=== PATIENT | male | born 1975 | race Caucasian/White ===

== ENCOUNTER 2016-07-20 12:33 | Inpatient (IN) ==
[~2016-07-20 12:33] MED LIST: *HR* LORazepam 2 MG/ML VIAL IVP ONE
[2016-07-20] MEDS ORDERED: Ipratropium/Albuterol Neb 3 ML IH ONE (12:44)
[2016-07-20] MEDS ORDERED: methylPREDNISolone 125 MG/2 ML VIAL IVP ONE (12:44)
--- NOTE | 2016-07-20 12:48 | Emergency Department Note ---
Disposition Clinical Impression: Asthma with status asthmaticus in adult Disposition: Admitted As Inpatient Condition: Serious SOB HPI - General Chief Complaint: ED Shortness of Breath/Dyspnea Stated Complaint: BHARAT-asthma Time Seen by Provider: 07/20/16 12:38 Nursing Notes Reviewed: Yes Vital Signs Reviewed: Yes - History of Present Illness Edward is a 41-year-old male with a history of asthma, anxiety, fibromyalgia who presents to the emergency department with a chief complaint of dysesthesia. He states since yesterday has noticed progressive difficulty breathing. He reports a recent respiratory infection and thinks it might have been pertussis but was treated by his PCP as an outpatient. He denies any chest pain or history of heart disease other than a fast heart rate. Denies any nausea or vomiting. Denies any history of DVT/PE. He is not bedbound or mobilized. Denies fevers or chills. No lightheadedness or syncope. No numbness or weakness in his extremities. - Related Data Home Medications Medication Instructions Recorded Confirmed Albuterol Neb [Proventil Neb] 2.5 mg IH Q4HR 07/20/16 07/20/16 Albuterol Sulfate [Proair Hfa] 2 puff IH Q4H PRN 07/20/16 07/20/16 Allopurinol [Zyloprim] 300 mg PO DAILY 07/20/16 07/20/16 Beclomethasone Diprop 80mcg [Qvar 1 puff IH BID 07/20/16 07/20/16 80 mcg] Benzonatate [Tessalon] 200 mg PO TID 07/20/16 07/20/16 Calcitriol 0.5 mcg PO DAILY 07/20/16 07/20/16 Cyclobenzaprine [Flexeril] 10 mg PO HS 07/20/16 07/20/16 Diazepam [Valium] 10 mg PO TID 07/20/16 07/20/16 Divalproex (24 HR) [Depakote ER 250 mg PO HS 07/20/16 07/20/16 (24 HR)] Gabapentin [Neurontin] 600 mg PO TID 07/20/16 07/20/16 Hydroxyzine HCl 25 mg PO TID 07/20/16 07/20/16 Meloxicam [Mobic] 15 mg PO DAILY 07/20/16 07/20/16 [place]-3/Dha/Epa/Fish Oil [Fish Oil 1,000 mg PO BID 07/20/16 07/20/16 1,000 mg Softgel] Oxycodone HCl/Acetaminophen 1 tab PO QID PRN 07/20/16 07/20/16 [Percocet 5-325 mg Tablet] Paroxetine [Paxil] 60 mg PO DAILY 07/20/16 07/20/16 Promethazine [Phenergan] 25 mg PO QID PRN 07/20/16 07/20/16 Propranolol LA (24 HR) [Inderal LA] 60 mg PO DAILY 07/20/16 07/20/16 Ranitidine HCl [Acid Staff Home Therapy Rn] 150 mg PO BID 07/20/16 07/20/16 SUMAtriptan Succinate [Imitrex] 100 mg PO DAILY PRN 07/20/16 07/20/16 Temazepam [Restoril] 30 mg PO HS 07/20/16 07/20/16 Allergies Allergy/AdvReac Type Severity Reaction Status Date / Time prochlorperazine Allergy Rash Verified 03/18/16 16:33 [From Compazine] onabotulinumtoxinA AdvReac Confusion Verified 07/20/16 15:34 [From Botox] All systems ED: reviewed and negative except as stated. Constitutional: Denies: fever Cardiovascular: Reports: dyspnea on exertion. Denies: chest pain Respiratory: Reports: cough, dyspnea Gastrointestinal: Denies: abdominal pain, nausea, vomiting Musculoskeletal: Denies: neck pain Integumentary: Denies: rash Neurological: Denies: headache, weakness, numbness Past Medical History - Past Medical History Medical history: Reports: arthritis, asthma, fibromyalgia, hyperlipidemia, hypertension, migraine Psychiatric history: Reports: no psych history - Social History Smoking Status: Never smoker Smokeless Tobacco Status: No Alcohol use: Reports: none Drug use: Reports: none Physical Exam General: Appears well, alert and oriented x 3 Cardiovascular: Tachycardic around 108 but regular rhythm. S1, S2. No murmurs , rubs or gallops. Respiratory: Patient's breathing about 35 times per minute. He is able to speak in several word sentences. Diminished breath sounds throughout with expiratory wheezing. Dry cough without productive sputum. Abdomen: Soft, nontender. No guarding, rebound or rigidity. Eyes: conjunctiva clear HENT: No oral mucosal lesions. Moist mucous membranes Neuro: Alert and oriented 3, amylase independently with a cane Musculoskeletal: There is no redness, swelling, edema, tenderness, asymmetry, pain along the venous system or any other sign of DVT. Skin: No lesions. No diaphoresis. Normal turgor. Normal color Psych: Appropriate Course Course Narrative: Presents to the emergency department with a chief complaint of dyspnea. Patient has a history of asthma and states over the last 48 hours his breathing has declined. When he initially came in he was talking in 5-6 word sentences, he ambulated and gave me his whole history of present illness. He was initially given 3 duo nebs [id number] as well as IV Solu-Medrol with little response. He began speaking in short sentences and he was placed on continuous albuterol nebs. He was given 2 g of magnesium. He continued to have decreased responsiveness to the point where his eyes were open but he was only slightly following commands. His chest x-ray showed nothing acute. An ABG did show a CO2 of 54. We called the triage licensed practical nurse, evaluate the patient emergency department and we were attempting to try all modalities before intubation. The patient was placed on BiPAP and was drawing tidal volumes between 450-550 with a rate between 20-24. I discussed this with the triage licensed practical nurse and at this time patient is protecting his airway and provided himself with good tidal volumes in rate and intubation may not be the most beneficial at this point in time. Plan is to admit him to the ICU on BiPAP and if he continues to deteriorate or has worsening ABGs decision to intubate can be made then. Vital Signs Temperature 98.2 F 07/20/16 12:40 Pulse Rate 124 07/20/16 12:40 Respiratory Rate 22 07/20/16 12:40 Blood Pressure 170/110 07/20/16 12:40 O2 Sat by Pulse Oximetry 97 07/20/16 12:40 Temperature 98.7 F 07/20/16 16:00 Pulse Rate 113 07/20/16 18:00 Respiratory Rate 15 07/20/16 18:00 Blood Pressure 136/98 07/20/16 18:00 O2 Sat by Pulse Oximetry 100 07/20/16 18:00 Oxygen Delivery Oxygen Delivery Bipap Shortness of Breath/Dyspnea - Lab Data Result diagrams: 07/20/16 14:03 07/20/16 14:03 Lab Results 07/20/16 07/20/16 07/20/16 Range/Units 14:03 14:03 14:20 WBC 9.1 (4.3-11.1) K/mcL RBC 5.55 H (4.19-5.50) M/mcL Hgb 17.1 H (12.9-16.9) g/dL Hct 49.9 (37.5-50.1) % MCV 89.9 (83.0-100.0) fL MCH 30.8 (28.0-33.3) pg MCHC 34.3 (31.6-35.5) g/dL RDW 12.9 (11.5-14.5) % Plt Count 226 (140-400) K/mcL MPV 9.3 L (9.4-12.4) fL Immature Gran % 0.9 (0-4) % Seg Neutrophils % 72.6 % Lymphocytes % 18.5 % Monocytes % 7.0 % Eosinophils % 0.7 % Basophils % 0.3 % Neutrophils # 6.6 (1.6-8.9) K/mcL Lymphocytes # 1.7 (0.6-4.6) K/mcL Monocytes # 0.6 (0.0-1.3) K/mcL Eosinophils # 0.1 (0.0-0.6) K/mcL Basophils # 0.0 (0.0-0.2) K/mcL ABG pH 7.32 (7.32-7.45) pH Units ABG pCO2 58 H (35-45) mmHg ABG pO2 53 L (85-104) mmHg ABG HCO3 29.9 H (21-27) mEQ/L ABG Total CO2 31.7 H (20-26) mEq/L ABG O2 Saturation 84 L (95-98) % ABG Base Excess 1.9 (-2.0 to 3.0) mEq/L Blood Gas Modality AEROSOL MASK Inspired O2 60 % Sodium 140 (136-145) mEq/L Potassium 3.9 (3.5-4.5) mEq/L Chloride 107 (98-109) mEq/L Carbon Dioxide 22 (19-29) mEq/L BUN 14 (8-26) mg/dL Creatinine 1.09 (0.72-1.25) mg/dL Est GFR ( Amer) > 60 (> 60) Est GFR (Non-Af Amer) > 60 (> 60) BUN/Creatinine Ratio 13 (6-26) Glucose 82 (70-99) mg/dL Calculated Osmolality 290 (280-300) Calcium 9.5 (8.6-10.8) mg/dL 07/20/16 Range/Units 14:45 WBC (4.3-11.1) K/mcL RBC (4.19-5.50) M/mcL Hgb (12.9-16.9) g/dL Hct (37.5-50.1) % MCV (83.0-100.0) fL MCH (28.0-33.3) pg MCHC (31.6-35.5) g/dL RDW (11.5-14.5) % Plt Count (140-400) K/mcL MPV (9.4-12.4) fL Immature Gran % (0-4) % Seg Neutrophils % % Lymphocytes % % Monocytes % % Eosinophils % % Basophils % % Neutrophils # (1.6-8.9) K/mcL Lymphocytes # (0.6-4.6) K/mcL Monocytes # (0.0-1.3) K/mcL Eosinophils # (0.0-0.6) K/mcL Basophils # (0.0-0.2) K/mcL ABG pH 7.32 (7.32-7.45) pH Units ABG pCO2 54 H (35-45) mmHg ABG pO2 249 H (85-104) mmHg ABG HCO3 27.8 H (21-27) mEQ/L ABG Total CO2 29.5 H (20-26) mEq/L ABG O2 Saturation 100 H (95-98) % ABG Base Excess 0.3 (-2.0 to 3.0) mEq/L Blood Gas Modality AEROSOL MASK Inspired O2 60 % Sodium (136-145) mEq/L Potassium (3.5-4.5) mEq/L Chloride (98-109) mEq/L Carbon Dioxide (19-29) mEq/L BUN (8-26) mg/dL Creatinine (0.72-1.25) mg/dL Est GFR ( Amer) (> 60) Est GFR (Non-Af Amer) (> 60) BUN/Creatinine Ratio (6-26) Glucose (70-99) mg/dL Calculated Osmolality (280-300) Calcium (8.6-10.8) mg/dL Critical Care Time Critical Care Time: Yes Total Critical Care Time: 35 Attestation: Critical care performed: Time is exclusive of separately billable procedures. Time includes: direct patient care, patient reassessment, coordination of patient care, interpretation of data (laboratory data, radiology data, and respiratory data), review of patient's medical records, medical consultation and documentation of patient care. Procedures included in critical care time: Procedures excluded from critical care time: Attestation Statement - Attestation Attestation: I, Carly Mays, examined this patient and my medical decision-making was reviewed with the SENIOR INFORMATION SECURITY ANALYST/PA/Advanced Practice Nurse/Resident Physician. I agree with the documented findings, disposition and treatment plan as described except to the extent set forth below. Patient presents to the emergency department with a chief complaint of difficulty in breathing. Onset yesterday. His significant other states he had an asthma attack yesterday morning and he had another one this morning. He has been admitted for his asthma once in the past. 2 weeks ago was diagnosed with pertussis but those symptoms improved. No fever. On exam the patient is tachycardic and tachypneic. Significantly diminished lungs sounds with end expiratory wheezing. Plan. Chest x-ray and nebs. We will reevaluate. Patient still felling better after neb treatments. We will check labs. We will try magnesium. Toradol and reevaluate. Called to him. Patient with increasing work of breathing. Altered mental status. Patient receiving continuous ambulatory treatment at this time. Discussed with pulmonology is at the bedside evaluating the patient.
[2016-07-20] MEDS ORDERED: Ketorolac 30 MG/ML VIAL IV ONE (13:46)
[2016-07-20] MEDS ORDERED: 0.9 % Sodium Chloride 1,000 ML IV ONE (13:46)
[2016-07-20] MEDS ORDERED: Albuterol 2.5 MG/3 ML NEBULIZER IH ONE (14:15)
[2016-07-20 14:18] LABS: Basophils % 0.3 %; Eosinophils # 0.1 K/mcL (0.0-0.6); Eosinophils % 0.7 %; Hematocrit 49.9 % (37.5-50.1); Hemoglobin 17.1 g/dL (12.9-16.9); Immature Granulocytes % 0.9 % (0-4); Lymphocytes # 1.7 K/mcL (0.6-4.6); Lymphocytes % 18.5 %; Mean Corpuscular HGB Conc 34.3 g/dL (31.6-35.5); Mean Corpuscular Hemoglobin 30.8 pg (28.0-33.3); Mean Corpuscular Volume 89.9 fL (83.0-100.0); Mean Platelet Volume 9.3 fL (9.4-12.4); Monocytes # 0.6 K/mcL (0.0-1.3); Neutrophils # 6.6 K/mcL (1.6-8.9); Platelet Count 226 K/mcL (140-400); Red Blood Count 5.55 M/mcL (4.19-5.50); Red Cell Distribution Width 12.9 % (11.5-14.5); Segmented Neutrophils % 72.6 %
[2016-07-20] MEDS ORDERED: Ketamine *HR* 500 MG/10 ML MDV IVP ONE (14:25)
[2016-07-20] MEDS ORDERED: Magnesium Sulfate 1 GM in D5% in Water 100 ML IVPB ONE (14:29)
[2016-07-20 14:31] LABS: BUN/Creatinine Ratio 13 (6-26); Blood Urea Nitrogen 14 mg/dL (8-26); Calcium 9.5 mg/dL (8.6-10.8); Carbon Dioxide 22 mEq/L (19-29); Chloride 107 mEq/L (98-109); Glucose 82 mg/dL (70-99); Osmolality,Calculated 290 (280-300); Potassium 3.9 mEq/L (3.5-4.5); Sodium 140 mEq/L (136-145); eGFR For African Americans > 60 (> 60); eGFR For Non-African Americans > 60 (> 60)
[2016-07-20] MEDS ORDERED: *HR* LORazepam 2 MG/ML VIAL IVP ONE (14:43)
[2016-07-20 15:00] LABS: ABG Base Excess 1.9 mEq/L (-2.0 to 3.0); ABG HCO3 29.9 mEQ/L (21-27); ABG Oxygen Saturation 84 % (95-98); ABG PCO2 58 mmHg (35-45); ABG PH 7.32 pH Units (7.32-7.45); ABG PO2 53 mmHg (85-104); ABG TCO2 31.7 mEq/L (20-26); Blood Gas FiO2 60 %
[2016-07-20 15:00] LABS: ABG Base Excess 0.3 mEq/L (-2.0 to 3.0); ABG HCO3 27.8 mEQ/L (21-27); ABG Oxygen Saturation 100 % (95-98); ABG PCO2 54 mmHg (35-45); ABG PH 7.32 pH Units (7.32-7.45); ABG PO2 249 mmHg (85-104); ABG TCO2 29.5 mEq/L (20-26)
[2016-07-20 15:01] LABS: Blood Gas FiO2 60 %
[2016-07-20] MEDS ORDERED: Ipratropium/Albuterol Neb 3 ML ONE (16:17)
[2016-07-20 16:37] LABS: ABG Base Excess 1.8 mEq/L (-2.0 to 3.0); ABG HCO3 27.8 mEQ/L (21-27); ABG Oxygen Saturation 97 % (95-98); ABG PCO2 47 mmHg (35-45); ABG PH 7.38 pH Units (7.32-7.45); ABG PO2 92 mmHg (85-104); ABG TCO2 29.2 mEq/L (20-26)
[2016-07-20 16:38] LABS: Blood Gas FiO2 40 %
[2016-07-20] MEDS ORDERED: Naloxone 0.4 MG/ML INJ IVP PRN (16:39)
--- NOTE | 2016-07-20 16:39 | Pulmonology History & Physical ---
Date of Encounter: 07/20/16 Time of Encounter: 16:38 Assessment and Plan (1) Acute weakness Current visit: Yes Status: Acute I spent 40min of Critical Care time with this patient. It involved decision making of high complexity to assess, manipulate, and support vital organ system failure and/or to prevent further life threatening deterioration of the patient' s condition. The time involved in the performance of separately reportable procedures was not counted toward critical care time. Neuropsych: 1. Acute weakness/decreased responsiveness. Paradoxically as respiratory status continues to improve neurologically he is had some deterioration. Noted in history of present illness patient is able to weakly move his hand bilaterally and legs bilaterally but only intermittently and to much prodding he has become very anxious appearing and tearful especially when speaking with his . Neurologically the only manifestation that I can think of that would result and this would be acute locked in syndrome. I am much more convinced that this represents a psychological conversion disorder. Nevertheless I will send patient for CT angiogram of head and neck when clinically stable from respiratory status to rule out this possibility. Acute noncontrasted head CT was within normal limits. He can also receive some low dose anxiolytic such as Ativan as needed to help with anxiety. Patient is unstable and unable to obtain MRI in at this time as he has had a lumbar implant. Pulm: 1. Acute hypoxic hypercapnic respiratory failure secondary to severe asthma exacerbation. Blood gas shows improving ventilation with noninvasive positive pressure support along with frequent bronchodilators which will continue every 12:40 hour as needed. We will continue IV steroids at this time. Patient is oxygenating well with very modest amounts of supplemental FiO2 right now 40% FiO2 being bled through her BiPAP will switch over to the heliox 70/30 ad mixture to help decrease airway resistance. Repeat ABG if worsening would pursue intubation. Cards: Tachycardia/hypertenson secondary to proper dilator administration along with anxiety and respiratory insufficiency. Continues to improve ECG without acute STEMI FEN-GI: Nothing by mouth for now IV crystalloid infusion as needed Renal: No SHANTHI Puga placed for strict monitoring of output while in respiratory distress on BiPAP urinalysis and urinary tox screen. ID: Recent history of pertussis status post treatment I am unclear exactly what treatment patient is undertaken at this time will but we will attempt to get records. No clear evidence of sepsis -does not have a white count and unclear what triggered asthma exacerbation but would cover with azithromycin overnight given recent pertussis diagnosis. Rule out influenza and will have brought respiratory infectious panel and sputum culture as able to gather. Checking lactate which may be elevated secondary to bronchodilator administration trend MAP (currently hypertensive). Continue to trend urine output Heme/Onc: DVT prophylaxis with SCDs pending CTA of Head. Endo: Glucose monitored Integ/MSK: Skin Care per ICU procotol to prevent ulcers CODE: Full. NOK/HKPOA Alexia updated and medical decision making outlined with her (2) Asthma with status asthmaticus in adult Current visit: Yes Status: Acute (3) Acute respiratory failure with hypoxia and hypercapnia Current visit: Yes Status: Acute History of Present Illness Chief complaint: Difficulty Breathing. HPI: Mr. Kerr is a 41 year old male with a history of asthma without prior episode of intubation. Presented to the ED with increased work of breathing and wheezing consistent with asthma exacerbation. Recently was diagnosed with pertussis approximately 2 weeks ago and per family he was treated unclear what he received for treatment. Over last 2 days it had increased shortness of breath but this morning he woke up is very dyspneic and upon arrival to the ED was speaking in very short sentences. Patient really required intubation but with aggressive bronchodilator administration IV magnesium and IV Solu-Medrol along with noninvasive positive pressure ventilation oxygenation ventilation improved and he was transferred to the ICU for further management Concerning only while in the ED patient became less responsive however respiratory status was actually improving. He was noted not to be moving his extremities and not following commands. Emergent head CT was performed without evidence of acute CVA. Upon arrival to the ED he was on BiPAP and although he was not following our commands was able to trigger the BiPAP. Oxygenation was 99% on very minimal FiO2. Repeat ABG showed improvement in ventilation. And certainly the amount of unresponsiveness was not consistent with improvement in respiratory status. Clinically patient was hemodynamically stable with palpable pulses blood pressure that was stable and was tachycardic but tachycardia vaccine improved from where it was when I evaluated the patient in the emergency department The patient was joined by his and [id number] at bedside I had a long conversation with them in and per the he does have some underlying depression and anxiety which is being treated she states that there was one prior episode in 2010 which we have in our [facility] records which demonstrated at that time he had acute arm weakness and slurred speech which he had extensive workup for possible CVA with including MRI which was negative at that time he was diagnosed with a conversion disorder which resolved after 3 weeks Both I and his were at bedside holding the patient's hand and encouraging him to respond to our commands patient became tearful he was able to after some time gently squeeze my hand when prompted on both hands and also to push against my hands very weakly with his feet Past Med Surg Social Fam HX - Past Medical History Medical history: arthritis, asthma, fibromyalgia, hyperlipidemia, hypertension, migraine Psychiatric history: no psych history - Social History Smoking Status: Never smoker Smokeless Tobacco Status: No Alcohol use: none Drug use: none Medications and Allergies Albuterol Neb [Proventil Neb] 2.5 mg IH Q4HR 07/20/16 [History] Albuterol Sulfate [Proair Hfa] 2 puff IH Q4H PRN 07/20/16 [History] Allopurinol [Zyloprim] 300 mg PO DAILY 07/20/16 [History] Beclomethasone Diprop 80mcg [Qvar 80 mcg] 1 puff IH BID 07/20/16 [History] Benzonatate [Tessalon] 200 mg PO TID 07/20/16 [History] Calcitriol 0.5 mcg PO DAILY 07/20/16 [History] Cyclobenzaprine [Flexeril] 10 mg PO HS 07/20/16 [History] Diazepam [Valium] 10 mg PO TID 07/20/16 [History] Divalproex (24 HR) [Depakote ER (24 HR)] 250 mg PO HS 07/20/16 [History] Gabapentin [Neurontin] 600 mg PO TID 07/20/16 [History] Hydroxyzine HCl 25 mg PO TID 07/20/16 [History] Meloxicam [Mobic] 15 mg PO DAILY 07/20/16 [History] [place]-3/Dha/Epa/Fish Oil [Fish Oil 1,000 mg Softgel] 1,000 mg PO BID 07/20/16 [ History] Oxycodone HCl/Acetaminophen [Percocet 5-325 mg Tablet] 1 tab PO QID PRN [History] Paroxetine [Paxil] 60 mg PO DAILY 07/20/16 [History] Promethazine [Phenergan] 25 mg PO QID PRN 07/20/16 [History] Propranolol LA (24 HR) [Inderal LA] 60 mg PO DAILY 07/20/16 [History] Ranitidine HCl [Acid [employer]] 150 mg PO BID 07/20/16 [History] SUMAtriptan Succinate [Imitrex] 100 mg PO DAILY PRN 07/20/16 [History] Temazepam [Restoril] 30 mg PO HS 07/20/16 [History] Allergies prochlorperazine [From Compazine] Allergy (Verified 03/18/16 16:33) Rash onabotulinumtoxinA [From Botox] Adverse Reaction (Verified 07/20/16 15:34) Confusion All Systems: A 10-system review of systems was performed and is negative for pertinent findings except as documented above in the HPI. Physical Examination Vital Signs: Vital Signs, Last 4 Hours Temp Pulse Resp BP Pulse Ox 07/20/16 16:20 21 158/92 07/20/16 16:00 98.7 F 120 24 159/100 98 General appearance: other (Patient is laying in bed occasionally he will make eye contact he does not move his extremities to command he is taking shallow breaths) Eyes: nonicteric ENT: oropharynx moist Neck: supple Effort: mildly labored Auscultation: bilateral: diminished breath sounds (Movement bilaterally although has improved since prior examination in ED), wheezes Cardiovascular: other (Rapid but regular with no murmur) Gastrointestinal: normoactive bowel sounds, soft, non-tender Integumentary: normal Extremities: no cyanosis, no edema, no clubbing, pink and warm, pulses normal Musculoskeletal: no deformities pupils equal and round, other (Patient does have modest response to deep painful stimuli although not nearly what would be expected. He is able to move both hands to my request after much prodding also he can wiggle his toes against my hand after much prodding. He has normal muscle tone with normal reflexes appreciated) anxious, tearful Results - Laboratory Findings CBC and BMP: 07/20/16 14:03 07/20/16 14:03 ABG ABG pH 7.32 pH Units (7.32-7.45) 07/20/16 14:45 ABG pCO2 54 mmHg (35-45) H 07/20/16 14:45 ABG pO2 249 mmHg (85-104) H 07/20/16 14:45 ABG O2 Saturation 100 % (95-98) H 07/20/16 14:45 Abnormal lab findings: Abnormal lab results RBC 5.55 M/mcL (4.19-5.50) H 07/20/16 14:03 Hgb 17.1 g/dL (12.9-16.9) H 07/20/16 14:03 MPV 9.3 fL (9.4-12.4) L 07/20/16 14:03 ABG pCO2 54 mmHg (35-45) H 07/20/16 14:45 ABG pO2 249 mmHg (85-104) H 07/20/16 14:45 ABG HCO3 27.8 mEQ/L (21-27) H 07/20/16 14:45 ABG Total CO2 29.5 mEq/L (20-26) H 07/20/16 14:45 ABG O2 Saturation 100 % (95-98) H 07/20/16 14:45 POC Glucose 102 (58-89) H 07/20/16 15:57 - Diagnostic Findings Chest x-ray: report reviewed, image reviewed
[2016-07-20] MEDS ORDERED: Albuterol 2.5 MG/3 ML NEBULIZER IH PRN (16:45)
[2016-07-20] MEDS: Ipratropium/Albuterol Neb 3 ML IH PRN ×7 (17:04→23:09)
[2016-07-20 17:06] LABS: Bilirubin,Urine Negative (Negative); Blood,Urine Negative (Negative); Clarity,Urine Clear (Clear); Color,Urine Yellow (Yellow); Glucose,Urine (UA) Normal (Normal); Ketones,Urine Negative (Negative); Leukocyte Esterase,Urine Negative (Negative); Nitrite,Urine Negative (Negative); Protein,Urine Negative (Neg-Trace); Specific Gravity,Urine 1.006 (1.010-1.025); Urobilinogen,Urine Normal (Normal)
[2016-07-20] MEDS: methylPREDNISolone 125 MG/2 ML VIAL IVP SCH ×2 (17:22→23:37)
[2016-07-20] MEDS: Azithromycin 500 MG in D5% in Water 250 ML IVPB SCH (17:22)
[2016-07-20 17:27] LABS: Amphetamine Screen,Urine Negative ng/mL (Cutoff=1000); Barbiturate Screen,Urine Negative ng/mL (Cutoff=200); Benzodiazepines Screen,Urine Positive ng/mL (Cutoff=200); Cannabinoid Screen,Urine Negative ng/mL (Cutoff = 50); Cocaine Screen,Urine Negative ng/mL (Cutoff= 300); Opiate Screen,Urine Negative ng/mL (Cutoff=300); Phencyclidine Screen,Urine Negative ng/mL (Cutoff=25)
[2016-07-20] MEDS ORDERED: Racepinephrine Neb 0.5 ML VIAL IH ONE ×3 (18:24→22:19)
[2016-07-20] MEDS: *HR* LORazepam 2 MG/ML VIAL IVP PRN (18:27)
[2016-07-20 19:26] LABS: ABG Base Excess 0.5 mEq/L (-2.0 to 3.0); ABG Oxygen Saturation 99 % (95-98); ABG PCO2 44 mmHg (35-45); ABG PH 7.38 pH Units (7.32-7.45); ABG PO2 155 mmHg (85-104); ABG TCO2 27.4 mEq/L (20-26); Blood Gas FiO2 40 %
[2016-07-20 19:45] LABS: Adenovirus Not Detected (Not Detect); Bordetella Pertussis Not Detected (Not Detect); Chlamydophila pneumoniae Not Detected (Not Detect); Coronavirus 229E Not Detected (Not Detect); Coronavirus HKU1 Not Detected (Not Detect); Coronavirus NL63 Not Detected (Not Detect); Coronavirus OC43 Not Detected (Not Detect); Human Metapneumovirus Not Detected (Not Detect); Human Rhinovirus/Enterovirus Not Detected (Not Detect); Influenza A Subtype 2009 H1 Not Detected (Not Detect); Influenza A Untypeable Not Detected (Not Detect); Influenza B Not Detected (Not Detect); Mycoplasma pneumoniae Not Detected (Not Detect); Parainfluenza Virus 1 Not Detected (Not Detect); Parainfluenza Virus 2 Not Detected (Not Detect); Parainfluenza Virus 3 Not Detected (Not Detect); Parainfluenza Virus 4 Not Detected (Not Detect); Respiratory Syncytial Virus Not Detected (Not Detect)
[2016-07-21 00:36] LABS: ABG Base Excess 1.4 mEq/L (-2.0 to 3.0); ABG HCO3 27.2 mEQ/L (21-27); ABG Oxygen Saturation 99 % (95-98); ABG PCO2 46 mmHg (35-45); ABG PH 7.38 pH Units (7.32-7.45); ABG PO2 117 mmHg (85-104); ABG TCO2 28.6 mEq/L (20-26); Blood Gas FiO2 40 %
[2016-07-21] MEDS: Ipratropium/Albuterol Neb 3 ML IH PRN ×6 (00:39→05:11)
[2016-07-21 04:01] LABS: Hemoglobin 17.3 g/dL (12.9-16.9); Mean Corpuscular HGB Conc 33.3 g/dL (31.6-35.5); Mean Corpuscular Hemoglobin 30.1 pg (28.0-33.3); Mean Corpuscular Volume 90.4 fL (83.0-100.0); Mean Platelet Volume 9.3 fL (9.4-12.4); Platelet Count 231 K/mcL (140-400); Red Blood Count 5.75 M/mcL (4.19-5.50); Red Cell Distribution Width 13.2 % (11.5-14.5)
[2016-07-21 04:18] LABS: BUN/Creatinine Ratio 16 (6-26); Blood Urea Nitrogen 17 mg/dL (8-26); Calcium 9.4 mg/dL (8.6-10.8); Carbon Dioxide 20 mEq/L (19-29); Chloride 107 mEq/L (98-109); Glucose 169 mg/dL (70-99); Magnesium 2.6 mg/dL (1.6-2.6); Osmolality,Calculated 295 (280-300); Potassium 4.5 mEq/L (3.5-4.5); Sodium 140 mEq/L (136-145); eGFR For African Americans > 60 (> 60); eGFR For Non-African Americans > 60 (> 60)
[2016-07-21 04:52] LABS: ABG Base Excess 1.4 mEq/L (-2.0 to 3.0); ABG HCO3 27.2 mEQ/L (21-27); ABG Oxygen Saturation 99 % (95-98); ABG PCO2 46 mmHg (35-45); ABG PH 7.38 pH Units (7.32-7.45); ABG PO2 128 mmHg (85-104); ABG TCO2 28.6 mEq/L (20-26)
[2016-07-21 04:56] LABS: Blood Gas FiO2 40 %
[2016-07-21] MEDS: methylPREDNISolone 125 MG/2 ML VIAL IVP SCH (05:03)
[2016-07-21] MEDS: *HR* LORazepam 2 MG/ML VIAL IVP PRN (08:03)
--- NOTE | 2016-07-21 10:50 | Neurology - Consult Note ---
Date of Encounter: 07/21/16 Time of Encounter: 10:47 Assessment and Plan (1) Acute weakness Current Visit: Yes Status: Acute Diffuse weakness, fluctuating and actually improving. Leg muscle strength at leat 4+/5 bilaterally. Patient is areflexic and does have previous coughing and URI symptoms without associated fever. Major concern is Guillain-[place] but since weakness rapidly improving and no other sensory deficits, at this time would recommend continuing medical and supportive care. Does have history of chronic pain and fibromyalgia which can contribute to diffuse muscle pain and give away weakness. History of Present Illness Chief complaint: diffuse muscle weakness HPI: Mr. Kerr is a 41 year old male with PMH significant for fibromyalgia, , Chronic pain, history of arsenic poisenning, asthma, migriane headaches, who developed acute respiratory failure being treated in the ICU. Neurology was consulted due to being found to have fluctuating diffuse weakness. Per medical staff, patient was found this AM to have quite significant muscle weakness and that he could life his arms up. It it noticed that the muscle weakness comes and goes. Patient says that he has fibromyalgia and when he moves he is in pain. He also says that he has history of arsenic poisening contributing to leg weakness. At the time of this interview, he is able to lift leg up off the bed bilaterally. No difficulty speaking or swallowing. Patient says that few days ago he developed persistent cough few weeks ago and had a course of amoxicillin via PCP. No fever reported. Says that otherwise he felt fine before developing asthma on Last Thursday. Past Med Surg Social Fam HX - Past Medical History Medical history: arthritis, asthma, fibromyalgia, hyperlipidemia, hypertension, migraine Psychiatric history: no psych history - Social History Smoking Status: Never smoker Smokeless Tobacco Status: No Alcohol use: none Drug use: none Medications and Allergies Albuterol Neb [Proventil Neb] 2.5 mg IH Q4HR 07/20/16 [History] Albuterol Sulfate [Proair Hfa] 2 puff IH Q4H PRN 07/20/16 [History] Allopurinol [Zyloprim] 300 mg PO DAILY 07/20/16 [History] Beclomethasone Diprop 80mcg [Qvar 80 mcg] 1 puff IH BID 07/20/16 [History] Benzonatate [Tessalon] 200 mg PO TID 07/20/16 [History] Calcitriol 0.5 mcg PO DAILY 07/20/16 [History] Cyclobenzaprine [Flexeril] 10 mg PO HS 07/20/16 [History] Diazepam [Valium] 10 mg PO TID 07/20/16 [History] Divalproex (24 HR) [Depakote ER (24 HR)] 250 mg PO HS 07/20/16 [History] Gabapentin [Neurontin] 600 mg PO TID 07/20/16 [History] Hydroxyzine HCl 25 mg PO TID 07/20/16 [History] Meloxicam [Mobic] 15 mg PO DAILY 07/20/16 [History] [place]-3/Dha/Epa/Fish Oil [Fish Oil 1,000 mg Softgel] 1,000 mg PO BID 07/20/16 [ History] Oxycodone HCl/Acetaminophen [Percocet 5-325 mg Tablet] 1 tab PO QID PRN [History] Paroxetine [Paxil] 60 mg PO DAILY 07/20/16 [History] Promethazine [Phenergan] 25 mg PO QID PRN 07/20/16 [History] Propranolol LA (24 HR) [Inderal LA] 60 mg PO DAILY 07/20/16 [History] Ranitidine HCl [Acid Chemical Treatment Operator] 150 mg PO BID 07/20/16 [History] SUMAtriptan Succinate [Imitrex] 100 mg PO DAILY PRN 07/20/16 [History] Temazepam [Restoril] 30 mg PO HS 07/20/16 [History] Allergies prochlorperazine [From Compazine] Allergy (Verified 03/18/16 16:33) Rash onabotulinumtoxinA [From Botox] Adverse Reaction (Verified 07/20/16 15:34) Confusion All Systems: A 10-system review of systems was performed and is negative for pertinent findings except as documented above in the HPI. 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 Motor examination - left side: 4: hip flexors, 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 operator, quadriceps, tibialis Anterior, toe extension (EHL), plantarflexion, 5/5: deltoids, biceps, triceps, wrist flexion, wrist extension Detailed sensory examination: intact Posture: other (None) Reflex and gait examination: intact Reflexes: Biceps: 0, Triceps: 0, Brachioradialis: 0, Patella: 0, Achilles: 0 Mental Status Examination: awake, alert, oriented to person, oriented to place, oriented to time, follows commands appropriately, answers questions appropriately, no agnosia, no aphasia, no aproxia Cranial nerve examination: PERRL, EOMI, visual sheriff intact, corneal reflexes brisk symmetrically, sensory to face intact, mastication intact, no facial asymmetry is present, no dysarthria, hearing is intact symmetrically, soft palate elevates bilaterally upon phonation, gag reflex intact, flexes SCM and trapezius muscles symmetrically with full power, tongue protrudes midline, no atrophy or facial fasiculations present Results - Laboratory Findings CBC and BMP: 07/21/16 03:50 07/21/16 03:50 Abnormal lab findings: Abnormal lab results WBC 13.1 K/mcL (4.3-11.1) H 07/21/16 03:50 RBC 5.75 M/mcL (4.19-5.50) H 07/21/16 03:50 Hgb 17.3 g/dL (12.9-16.9) H 07/21/16 03:50 Hct 52.0 % (37.5-50.1) H 07/21/16 03:50 MPV 9.3 fL (9.4-12.4) L 07/21/16 03:50 ABG pCO2 46 mmHg (35-45) H 07/21/16 04:38 ABG pO2 128 mmHg (85-104) H 07/21/16 04:38 ABG HCO3 27.2 mEQ/L (21-27) H 07/21/16 04:38 ABG Total CO2 28.6 mEq/L (20-26) H 07/21/16 04:38 ABG O2 Saturation 99 % (95-98) H 07/21/16 04:38 Glucose 169 mg/dL (70-99) H 07/21/16 03:50 POC Glucose 102 (58-89) H 07/20/16 15:57 Lactic Acid 3.6 mmol/L (0.5-2.2) H 07/21/16 05:34 Ur Specific [place] 1.006 (1.010-1.025) L 07/20/16 16:50 U Benzodiazepines Scrn Positive ng/mL (Gcglfo=112) H 07/20/16 16:50 Consult Discharge Plan - Plan Referrals: Nathaniel Russell MD [Primary Care Provider] -
[2016-07-21] MEDS ORDERED: SUMAtriptan succinate 50 MG TABLET PO PRN (11:55)
[2016-07-21] MEDS ORDERED: Acetaminophen 325 MG TABLET PO ONE (12:08)
[2016-07-21] MEDS: Benzonatate 100 MG CAPSULE PO SCH ×3 (12:42→20:09)
[2016-07-21 12:54] LABS: Albumin 4.5 g/dL (3.5-5.0); Albumin/Globulin Ratio 1.3 (1.1-2.2); Bilirubin,Direct 0.2 mg/dL (0.0-0.5); Bilirubin,Indirect 0.5 mg/dL (0.0-1.2); Globulin 3.5 g/dL (2.4-3.5)
[2016-07-21 13:12] LABS: Bilirubin,Total 0.7 mg/dL (0.2-1.2)
--- NOTE | 2016-07-21 13:13 | Electrocardiograph Report ---
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
--- NOTE | 2016-07-21 13:21 | Electrocardiograph Report ---
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 NO FURTHER INTERPRETATION POSSIBLE Electronically Signed On 07-21-16 13:20:28 EST by Antonio Reynolds MD
--- NOTE | 2016-07-21 13:49 | Pulmonology Progress Note ---
Date of Encounter: 07/21/16 Time of Encounter: 09:30 Assessment and Plan (1) Acute respiratory failure with hypoxia and hypercapnia Current Visit: Yes Status: Acute Acute hypoxic hypercapnic respiratory failure s/t severe asthma exacerbation Recent history of pertussis status post treatment, unclear of what treatment pt underwent for this. Lactate 3.6 which may be elevated secondary to bronchodilator administration Continue to trend urine output Continue bronchodilators and IV steroids Pt oxygenating well on 3L NC (2) Asthma with status asthmaticus in adult Current Visit: Yes Status: Acute Continue with bronchodilators and IV steroids at this time Supplemental oxygenation, O2: 96% on 3L (3) Acute weakness Current Visit: Yes Status: Acute Pt reportedly walked into ED and then developed weakness of BLE and BUE on admission He has been able to move all extremities intermittently and symptoms seem to be improving at this time CT head and CTA head/neck demonstrated no abnormalities History of chronic pain and fibromyalgia which may be contributing to pain/ weakness Neurology was consulted Subjective Principal diagnosis: Asthma exacerbation Interval history: Pt became anxious this morning with the BiPAP in place. Pt removed this and he was subsequently placed on NC. Pt was able to move all extremities this morning. Objective PUL Vital signs: Last Vital Signs Temp 97.7 F 07/21/16 11:51 Pulse 103 07/21/16 12:25 Resp 16 07/21/16 12:00 BP 135/84 07/21/16 12:00 Pulse Ox 96 07/21/16 12:00 General appearance: alert, lethargic Eyes: nonicteric Neck: supple Effort: mildly labored Auscultation: bilateral: diminished breath sounds Cardiovascular: other (Regular rhythm, tachycardic) Gastrointestinal: normoactive bowel sounds, soft, non-distended Integumentary: normal Extremities: no cyanosis, no edema, no clubbing Musculoskeletal: no deformities pupils equal and round, other (Pt is able to follow commands and move each extremity although he reports pain with movement. ) anxious Results - Laboratory Findings CBC and BMP: 07/21/16 03:50 07/21/16 03:50 ABG ABG pH 7.38 pH Units (7.32-7.45) 07/21/16 04:38 ABG pCO2 46 mmHg (35-45) H 07/21/16 04:38 ABG pO2 128 mmHg (85-104) H 07/21/16 04:38 ABG O2 Saturation 99 % (95-98) H 07/21/16 04:38 Abnormal lab findings: Abnormal lab results WBC 13.1 K/mcL (4.3-11.1) H 07/21/16 03:50 RBC 5.75 M/mcL (4.19-5.50) H 07/21/16 03:50 Hgb 17.3 g/dL (12.9-16.9) H 07/21/16 03:50 Hct 52.0 % (37.5-50.1) H 07/21/16 03:50 MPV 9.3 fL (9.4-12.4) L 07/21/16 03:50 ABG pCO2 46 mmHg (35-45) H 07/21/16 04:38 ABG pO2 128 mmHg (85-104) H 07/21/16 04:38 ABG HCO3 27.2 mEQ/L (21-27) H 07/21/16 04:38 ABG Total CO2 28.6 mEq/L (20-26) H 07/21/16 04:38 ABG O2 Saturation 99 % (95-98) H 07/21/16 04:38 Glucose 169 mg/dL (70-99) H 07/21/16 03:50 POC Glucose 102 (58-89) H 07/20/16 15:57 Lactic Acid 3.6 mmol/L (0.5-2.2) H 07/21/16 05:34 Ur Specific [place] 1.006 (1.010-1.025) L 07/20/16 16:50 U Benzodiazepines Scrn Positive ng/mL (Ixszjy=379) H 07/20/16 16:50 - Clinical Findings Intake & Output: Intake & Output 07/20/16 07/21/16 07/21/16 23:59 07:59 15:59 Intake Total 250 / 250 0 / 0 Output Total 1680 / 1680 200 / 200 100 / 100 Balance -1430 / -1430 -200 / -200 -100 / -100 Weight 92.675 kg 93.894 kg - VTE Documentation of Mechanical Device: Intermittent pneumatic compression device Consult Discharge Plan - Plan Referrals: Nathaniel Russell MD [Primary Care Provider] -
[2016-07-21] MEDS: Propranolol LA (24 HR) 60 MG CAP.SA.24H PO SCH (14:49)
[2016-07-21] MEDS: Albuterol 2.5 MG/3 ML NEBULIZER IH SCH ×2 (15:56→20:49)
[2016-07-21] MEDS: Azithromycin 500 MG in D5% in Water 250 ML IVPB SCH (16:23)
[2016-07-21] MEDS: *HR* Heparin 5,000 UNIT/ML VIAL SQ SCH ×2 (16:23→23:32)
[2016-07-21] MEDS: hydrOXYzine pamoate 25 MG CAPSULE PO SCH ×2 (16:23→20:10)
[2016-07-21] MEDS: Gabapentin 300 MG CAPSULE PO SCH ×2 (16:23→20:09)
[2016-07-21] MEDS: MethylPREDNISolone 40 MG/ML VIAL IVP SCH (16:24)
[2016-07-21] MEDS: Famotidine 20 MG TABLET PO SCH (20:10)
[2016-07-21] MEDS ORDERED: Temazepam 15 MG CAPSULE PO SCH (21:00)
[2016-07-21] MEDS ORDERED: Divalproex (24 HR) 250 MG TABLET PO SCH (21:00)
[2016-07-22] MEDS: Albuterol 2.5 MG/3 ML NEBULIZER IH SCH ×7 (00:26→23:34)
[2016-07-22 03:20] LABS: Basophils % 0.1 %; Hematocrit 46.6 % (37.5-50.1); Immature Granulocytes % 0.6 % (0-4); Immature Platelets 2.2 % (1.1-6.1); Lymphocytes # 1.4 K/mcL (0.6-4.6); Lymphocytes % 7.7 %; Mean Corpuscular HGB Conc 34.3 g/dL (31.6-35.5); Mean Corpuscular Hemoglobin 31.3 pg (28.0-33.3); Mean Corpuscular Volume 91.2 fL (83.0-100.0); Mean Platelet Volume 9.2 fL (9.4-12.4); Monocytes # 1.5 K/mcL (0.0-1.3); Monocytes % 7.9 %; Neutrophils # 15.7 K/mcL (1.6-8.9); Platelet Count 258 K/mcL (140-400); Red Blood Count 5.11 M/mcL (4.19-5.50); Red Cell Distribution Width 13.2 % (11.5-14.5); Segmented Neutrophils % 83.7 %
[2016-07-22 03:33] LABS: BUN/Creatinine Ratio 22 (6-26); Calcium 9.2 mg/dL (8.6-10.8); Carbon Dioxide 23 mEq/L (19-29); Chloride 107 mEq/L (98-109); Glucose 129 mg/dL (70-99); Osmolality,Calculated 292 (280-300); Potassium 4.5 mEq/L (3.5-4.5); Sodium 138 mEq/L (136-145); eGFR For African Americans > 60 (> 60); eGFR For Non-African Americans > 60 (> 60)
[2016-07-22 03:37] LABS: Blood Urea Nitrogen 25 mg/dL (8-26)
[2016-07-22] MEDS: MethylPREDNISolone 40 MG/ML VIAL IVP SCH (04:46)
[2016-07-22] MEDS: Pantoprazole 40 MG VIAL IVP SCH ×2 (05:56→06:00)
--- NOTE | 2016-07-22 08:12 | Pulmonology Progress Note ---
Date of Encounter: 07/22/16 Time of Encounter: 07:45 Assessment and Plan (1) Acute respiratory failure with hypoxia and hypercapnia Current Visit: Yes Status: Acute Acute hypoxic hypercapnic respiratory failure s/t severe asthma exacerbation Recent history of pertussis status post treatment, states he was given amoxicillin prior to diagnosis, then azithromycin. Lactate 1.9 today (decreased from 3.6) Continue to trend urine output Continue bronchodilators and IV steroids O2 sat 97% on 2L (2) Asthma with status asthmaticus in adult Current Visit: Yes Status: Acute Continue with bronchodilators and IV steroids at this time Supplemental oxygenation, O2: 97% on 2L (3) Acute weakness Current Visit: Yes Status: Acute Pt reportedly walked into ED and then developed weakness of BLE and BUE on admission He is able to move all extremities without difficulty on exam this morning CT head and CTA head/neck demonstrated no abnormalities History of chronic pain and fibromyalgia which may be contributing to pain/ weakness Neurology was consulted (4) DVT prophylaxis Current Visit: Yes Status: Acute Heparin SQ Subjective Principal diagnosis: Asthma exacerbation Interval history: Pt feeling well this morning, resting comfortably in bed. States that all symptoms have improved. Able to move all extremities without difficulty. Denies shortness of breath, chest pain, nausea, vomiting, diarrhea, or constipation. Objective PUL Vital signs: Last Vital Signs Temp 98.2 F 07/22/16 07:33 Pulse 90 07/22/16 07:39 Resp 10 07/22/16 07:57 BP 129/90 07/22/16 06:01 Pulse Ox 95 07/22/16 07:57 General appearance: no acute distress Eyes: nonicteric ENT: oropharynx moist Neck: supple Effort: normal Auscultation: bilateral: clear Cardiovascular: regular rate and rhythm Gastrointestinal: normoactive bowel sounds, soft, non-tender, non-distended Integumentary: normal Extremities: no cyanosis, no edema, no clubbing Musculoskeletal: no deformities normal mental status, non-focal exam, pupils equal and round, motor strength normal and symmetric mood appropriate Results - Laboratory Findings CBC and BMP: 07/22/16 03:08 07/22/16 03:08 ABG ABG pH 7.38 pH Units (7.32-7.45) 07/21/16 04:38 ABG pCO2 46 mmHg (35-45) H 07/21/16 04:38 ABG pO2 128 mmHg (85-104) H 07/21/16 04:38 ABG O2 Saturation 99 % (95-98) H 07/21/16 04:38 Abnormal lab findings: Abnormal lab results WBC 18.8 K/mcL (4.3-11.1) H 07/22/16 03:08 MPV 9.2 fL (9.4-12.4) L 07/22/16 03:08 Neutrophils # 15.7 K/mcL (1.6-8.9) H 07/22/16 03:08 Monocytes # 1.5 K/mcL (0.0-1.3) H 07/22/16 03:08 ABG pCO2 46 mmHg (35-45) H 07/21/16 04:38 ABG pO2 128 mmHg (85-104) H 07/21/16 04:38 ABG HCO3 27.2 mEQ/L (21-27) H 07/21/16 04:38 ABG Total CO2 28.6 mEq/L (20-26) H 07/21/16 04:38 ABG O2 Saturation 99 % (95-98) H 07/21/16 04:38 Glucose 129 mg/dL (70-99) H 07/22/16 03:08 POC Glucose 102 (58-89) H 07/20/16 15:57 Ur Specific [place] 1.006 (1.010-1.025) L 07/20/16 16:50 U Benzodiazepines Scrn Positive ng/mL (Sgxtvi=439) H 07/20/16 16:50 - Clinical Findings Intake & Output: Intake & Output 07/21/16 07/22/16 07/22/16 23:59 07:59 15:59 Intake Total 1050 / 1050 0 / 0 Output Total 900 / 900 0 / 0 Balance 150 / 150 0 / 0 Weight 93.5 kg - VTE Documentation of Mechanical Device: Intermittent pneumatic compression device Consult Discharge Plan - Plan Referrals: Nathaniel Russell MD [Primary Care Provider] -
[2016-07-22] MEDS: Gabapentin 300 MG CAPSULE PO SCH ×3 (09:26→20:29)
[2016-07-22] MEDS: *HR* Heparin 5,000 UNIT/ML VIAL SQ SCH (09:26)
[2016-07-22] MEDS: Propranolol LA (24 HR) 60 MG CAP.SA.24H PO SCH (09:26)
[2016-07-22] MEDS: Benzonatate 100 MG CAPSULE PO SCH (09:27)
[2016-07-22] MEDS: hydrOXYzine pamoate 25 MG CAPSULE PO SCH ×3 (09:27→20:30)
[2016-07-22] MEDS: Famotidine 20 MG TABLET PO SCH (09:27)
[2016-07-22] MEDS ORDERED: Benzonatate 100 MG CAPSULE PO PRN ×2 (11:24→11:42)
[2016-07-22] MEDS ORDERED: *HR* LORazepam 2 MG/ML VIAL IVP PRN (11:42)
[2016-07-22] MEDS ORDERED: SUMAtriptan succinate 50 MG TABLET PO PRN (11:42)
[2016-07-22] MEDS ORDERED: Naloxone 0.4 MG/ML INJ IVP PRN (11:42)
[2016-07-22] MEDS ORDERED: Ipratropium/Albuterol Neb 3 ML IH PRN (11:42)
[2016-07-22] MEDS ORDERED: *HR* Heparin 5,000 UNIT/ML VIAL SQ SCH (16:00)
[2016-07-22] MEDS ORDERED: Azithromycin 500 MG in D5% in Water 250 ML IVPB SCH (17:00)
[2016-07-22] MEDS ORDERED: MethylPREDNISolone 40 MG/ML VIAL IVP SCH (18:00)
--- NOTE | 2016-07-22 18:08 | Neurology Progress Note ---
Date of Encounter: 07/22/16 Time of Encounter: 11:00 Assessment and Plan (1) Acute weakness Current Visit: Yes Status: Acute Resolved. Likely related to ongoing medical insult. Resolved as medical conditions improve. Will sign off at this time Please continue medical and supportive care. Please call if any questions. Subjective Principal diagnosis: Asthma exacerbation and weakness Interval history: Patient seen and examined. Doing well today and is able to walk to the bathroon without any difficulty. Leg/arm weakness resolved. 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, hip flexors, tibialis Anterior, quadriceps, toe extension (EHL), plantarflexion Motor examination - left side: 5/5: deltoids, biceps, triceps, wrist flexion, wrist extension, hip flexors, reinforcing steel worker wire mesh, quadriceps, tibialis Anterior, toe extension (EHL), plantarflexion Sensation intact: Present: intact Posture: Present: other (None) Reflex and gait examination: intact Reflexes: Biceps: 0, Triceps: 0, Brachioradialis: 0, Patella: 0, Achilles: 0 Mental Status Examination: Present: awake, alert, oriented to person, oriented to place, oriented to time, follows commands appropriately, answers questions appropriately, no agnosia, no aphasia, no aproxia Cranial nerve examination: Present: PERRL, EOMI, visual sheriff intact, corneal reflexes brisk symmetrically, sensory to face intact, mastication intact, no facial asymmetry is present, no dysarthria, hearing is intact symmetrically, soft palate elevates bilaterally upon phonation, gag reflex intact, flexes SCM and trapezius muscles symmetrically with full power, tongue protrudes midline, no atrophy or facial fasiculations present - VTE Documentation of Mechanical Device: Intermittent pneumatic compression device Results - Laboratory Findings CBC and BMP: 07/22/16 03:08 07/22/16 03:08 Abnormal lab findings: Abnormal lab results WBC 18.8 K/mcL (4.3-11.1) H 07/22/16 03:08 MPV 9.2 fL (9.4-12.4) L 07/22/16 03:08 Neutrophils # 15.7 K/mcL (1.6-8.9) H 07/22/16 03:08 Monocytes # 1.5 K/mcL (0.0-1.3) H 07/22/16 03:08 ABG pCO2 46 mmHg (35-45) H 07/21/16 04:38 ABG pO2 128 mmHg (85-104) H 07/21/16 04:38 ABG HCO3 27.2 mEQ/L (21-27) H 07/21/16 04:38 ABG Total CO2 28.6 mEq/L (20-26) H 07/21/16 04:38 ABG O2 Saturation 99 % (95-98) H 07/21/16 04:38 Glucose 129 mg/dL (70-99) H 07/22/16 03:08 POC Glucose 102 (58-89) H 07/20/16 15:57 Ur Specific [place] 1.006 (1.010-1.025) L 07/20/16 16:50 U Benzodiazepines Scrn Positive ng/mL (Rxnxeq=038) H 07/20/16 16:50 Consult Discharge Plan - Plan Referrals: Nathaniel Russell MD [Primary Care Provider] -
[2016-07-22] MEDS ORDERED: Divalproex (24 HR) 250 MG TABLET PO SCH (21:00)
[2016-07-22] MEDS ORDERED: Temazepam 15 MG CAPSULE PO SCH (21:00)
[2016-07-23] MEDS ORDERED: Acetaminophen IV 1,000 MG/100 ML INFUS..BTL IVPB ONE (02:02)
[2016-07-23] MEDS ORDERED: Ketorolac 30 MG/ML VIAL IVP ONE (02:02)
[2016-07-23] MEDS: Albuterol 2.5 MG/3 ML NEBULIZER IH SCH ×3 (03:50→11:38)
[2016-07-23] MEDS ORDERED: Pantoprazole 40 MG VIAL IVP SCH (06:30)
[2016-07-23] MEDS ORDERED: *HR* Heparin 5,000 UNIT/ML VIAL SQ SCH (07:00)
[2016-07-23] MEDS: hydrOXYzine pamoate 25 MG CAPSULE PO SCH (08:14)
[2016-07-23] MEDS: Gabapentin 300 MG CAPSULE PO SCH (08:14)
[2016-07-23 08:34] LABS: Basophils % 0.1 %; Hematocrit 44.8 % (37.5-50.1); Hemoglobin 15.4 g/dL (12.9-16.9); Immature Granulocytes % 0.5 % (0-4); Lymphocytes % 7.3 %; Mean Corpuscular HGB Conc 34.4 g/dL (31.6-35.5); Mean Corpuscular Volume 90.1 fL (83.0-100.0); Mean Platelet Volume 9.6 fL (9.4-12.4); Monocytes # 0.9 K/mcL (0.0-1.3); Neutrophils # 11.4 K/mcL (1.6-8.9); Platelet Count 222 K/mcL (140-400); Red Blood Count 4.97 M/mcL (4.19-5.50); Red Cell Distribution Width 13.1 % (11.5-14.5); Segmented Neutrophils % 85.1 %
[2016-07-23 08:48] LABS: BUN/Creatinine Ratio 27 (6-26); Blood Urea Nitrogen 23 mg/dL (8-26); Carbon Dioxide 22 mEq/L (19-29); Chloride 107 mEq/L (98-109); Glucose 125 mg/dL (70-99); Osmolality,Calculated 293 (280-300); Potassium 4.2 mEq/L (3.5-4.5); Sodium 139 mEq/L (136-145); eGFR For African Americans > 60 (> 60); eGFR For Non-African Americans > 60 (> 60)
[2016-07-23] MEDS ORDERED: Propranolol LA (24 HR) 60 MG CAP.SA.24H PO SCH (09:00)
[2016-07-23] MEDS ORDERED: Famotidine 20 MG TABLET PO SCH (09:00)
[2016-07-23] MEDS ORDERED: predniSONE 20 MG TABLET PO SCH ×2 (09:00)
[2016-07-23] MEDS ORDERED: Beclomethasone 80mcg MDI IH SCH (09:15)
[2016-07-23 10:26] VITALS: BP 116/71
--- NOTE | 2016-07-23 13:34 | Electrocardiograph Report ---
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
--- NOTE | 2016-07-23 13:46 | Discharge Summary ---
Date of Encounter: 07/23/16 Time of Encounter: 13:00 - Discharge Diagnosis (1) Acute respiratory failure with hypoxia and hypercapnia Priority: Primary Status: Acute (2) Acute weakness Priority: Primary Status: Acute (3) Asthma with status asthmaticus in adult Priority: Primary Status: Acute (4) DVT prophylaxis Priority: Secondary Status: Acute - Discharge Medications Prescriptions: Azithromycin [Zithromax] 500 mg PO Q24H #10 tablet PredniSONE 40 mg PO DAILY #30 tablet Home Medications: Albuterol Neb [Proventil Neb] 2.5 mg IH Q4HR 07/20/16 [History] Albuterol Sulfate [Proair Hfa] 2 puff IH Q4H PRN 07/20/16 [History] Allopurinol [Zyloprim] 300 mg PO DAILY 07/20/16 [History] Beclomethasone Diprop 80mcg [QVAR 80 mcg] 1 puff IH BID 07/20/16 [History] Benzonatate [Tessalon] 200 mg PO TID 07/20/16 [History] Calcitriol 0.5 mcg PO DAILY 07/20/16 [History] Cyclobenzaprine [Flexeril] 10 mg PO HS 07/20/16 [History] Diazepam [Valium] 10 mg PO TID 07/20/16 [History] Divalproex (24 HR) [Depakote ER (24 HR)] 250 mg PO HS 07/20/16 [History] Gabapentin [Neurontin] 600 mg PO TID 07/20/16 [History] Hydroxyzine HCl 25 mg PO TID 07/20/16 [History] Meloxicam [Mobic] 15 mg PO DAILY 07/20/16 [History] [place]-3/Dha/Epa/Fish Oil [Fish Oil 1,000 mg Softgel] 1,000 mg PO BID 07/20/16 [ History] Oxycodone HCl/Acetaminophen [Percocet 5-325 mg Tablet] 1 tab PO QID PRN [History] Paroxetine [Paxil] 60 mg PO DAILY 07/20/16 [History] Promethazine [Phenergan] 25 mg PO QID PRN 07/20/16 [History] Ranitidine HCl [Acid Supervisor Meter Shop] 150 mg PO BID 07/20/16 [History] SUMAtriptan Succinate [Imitrex] 100 mg PO DAILY PRN 07/20/16 [History] Temazepam [Restoril] 30 mg PO HS 07/20/16 [History] Azithromycin [Zithromax] 500 mg PO Q24H #10 tablet 07/23/16 [Rx] PredniSONE 40 mg PO DAILY #30 tablet 07/23/16 [Rx] Allergies/Adverse Reactions: Allergies prochlorperazine [From Compazine] Allergy (Verified 03/18/16 16:33) Rash onabotulinumtoxinA [From Botox] Adverse Reaction (Verified 07/20/16 15:34) Confusion Procedures/tests Complete & Pending: Procedures Performed prior 72 hours Category Date Time Status CT angio head [CT] Stat Cat Scan 07/20/16 16:[address] angio neck [CT] Stat Cat Scan 07/20/16 16:57 Completed ECG 12 lead ECG [ECG] Routine Y 07/20/16 18:45 Completed ECG 12 lead ECG [ECG] Routine Y 07/23/16 02:10 Completed - Notes to Outpatient Provider Patient is on propranolol, possibly for his anxiety and essential tremor. Propranolol is discontinued because patient has severe asthma this time. Please consider other medication if patient continues to have anxiety and essential tremor. Date of admission: 07/20/16 15:21 Primary care physician: Nathaniel Russell MD Consults: 07/21/16 09:50 Consult to Neurology [CONS] Routine Consulting Provider: Josselyn Sanchez Reason for Consult: Extremity weakness Call Completed: Yes 07/22/16 11:21 Consult to Occupational Therapy [CONS] Routine Comment: Evaluate, develop and implement POC Consult to Physical Therapy [CONS] Routine Comment: Evaluate, develop and implement POC 07/23/16 11:59 Consult to Lift Truck Operator [CONS] Stat Reason for SW Consult: home health set up for discharge Discharging clinician: Elías Bee Anticipated date of discharge: 07/23/16 - Patient Status Disposition: Home, Self-Care Condition: Good Functional capacity at discharge: independent ambulation Overall status at discharge: patient is progressing back to baseline - Discharge Instructions Follow Up With: Nathaniel Russell MD [Primary Care Provider] - 07/28/16 10:00 am - Diet and Activity Activity: as per physical therapy, increase activity as tolerated Diet: regular diet Interval History: Mr. Kerr is a 41 year old male with a history of asthma without prior episode of intubation. Presented to the ED with increased work of breathing and wheezing consistent with asthma exacerbation. Recently was diagnosed with pertussis approximately 2 weeks ago and per family he was treated unclear what he received for treatment. Over last 2 days it had increased shortness of breath but this morning he woke up is very dyspneic and upon arrival to the ED was speaking in very short sentences. Patient really required intubation but with aggressive bronchodilator administration IV magnesium and IV Solu-Medrol along with noninvasive positive pressure ventilation oxygenation ventilation improved and he was transferred to the ICU for further management Concerning only while in the ED patient became less responsive however respiratory status was actually improving. He was noted not to be moving his extremities and not following commands. Emergent head CT was performed without evidence of acute CVA. Upon arrival to the ED he was on BiPAP and although he was not following our commands was able to trigger the BiPAP. Oxygenation was 99% on very minimal FiO2. Repeat ABG showed improvement in ventilation. And certainly the amount of unresponsiveness was not consistent with improvement in respiratory status. Clinically patient was hemodynamically stable with palpable pulses blood pressure that was stable and was tachycardic but tachycardia vaccine improved from where it was when I evaluated the patient in the emergency department Hospital course: Mr. Kerr is a 41 year old male admitted for severe asthma attack, status asthmaticus. He was admitted to ICU and was given antibiotic, steroid, and bronchodilator. After treatment, his condition is getting better. He is not in any acute respiratory distress any more. Patient was transferred to floor yesterday. Patient's condition is stable in floor, no fever, no shortness of breath, no chest pain, no nausea or vomiting. Vital signs stable. We will discharge home today. Patient had a weakness and evaluated by PT OT, he is recommended for home PT OT but he refused. He would like to have outpatient PT and OT therapy, arrangement has been set up. I saw and examined the patient today. He is awake, alert, oriented 3. Talk to me in full sentences, in no acute respiratory distress, lungs are clear, no wheezing. SPO2 95% in room air. Patient walk around in room without assistance. Patient will be discharged home with by mouth antibiotic and tapering down steroid. - Time Spent with Patient Total time spent providing and/or coordinating discharge services: - Constitutional Vitals: Temp Pulse Resp BP Pulse Ox 97.8 F 86 16 116/71 95 07/23/16 10:23 07/23/16 10:23 07/23/16 11:38 07/23/16 10:23 07/23/16 11:38 General appearance: Present: A&O X 3, no acute distress, answers questions appropriately - Head Head exam: Present: atraumatic, normocephalic - Eye Eye exam: Present: PERRL, conjuntiva pink, sclera anicteric Pupils: Present: PERRL - Neck Neck exam general surgery: Present: supple, trachea midline. Absent: lymphadenopathy - Respiratory Respiratory exam: Present: CTAB. Absent: accessory muscle use, rales, rhonchi, wheezes - Cardiovascular Cardiovascular exam: Present: RRR, +S1, +S2. Absent: diastolic murmur, gallop, rubs, systolic murmur - GI/Abdominal GI/Abdominal exam: Present: normal bowel sounds, soft, no peritoneal signs. Absent: distended, tenderness - Extremities Exam Extremities exam: Present: warm, radial pulses palpable and symetrical. Absent : calf tenderness, cyanotic, pedal edema - Neurological Exam Neurological exam: Present: CN II-XII intact, oriented X3, no focal deficits. Absent: pronater drift, facial droop, speech deficit - Skin Skin exam: Present: dry, intact - VTE Documentation of Mechanical Device: Intermittent pneumatic compression device
== END 2016-07-23 15:25 | disposition home or self-care (01) | DRG 189 ==
LOC: EMEROO 12:33 → ICNU 15:21 → 3ANU 07-22 14:59
PROVIDERS: ADMIT Internal Medicine Hospice and Palliative Medicine; ATTEND Internal Medicine

== ENCOUNTER 2017-02-02 08:45 | Inpatient (IN) ==
[2017-02-02] MEDS ORDERED: *HR* HYDROmorphone (PF) 1 MG/ML SYRINGE IVP ONE ×2 (09:19→13:19)
[2017-02-02] MEDS ORDERED: Ondansetron 4 MG/2 ML VIAL IVP ONE (09:19)
--- NOTE | 2017-02-02 09:25 | Emergency Department Note ---
START Narrative - START START: I examined this patient and my medical decision-making was reviewed with the Resident Physician. I agree with the documented findings, disposition and treatment plan as described except to the extent set forth below. Patient in emergency department with abdominal pain. Onset last night. He has a fever. No appetite. On examination he is laying about on his back. He is on his abdomen. Diaphoretic and right-sided tenderness diffusely. Plan. Labs and CT. Symptom control. Patient still having significant pain. CT is unremarkable. he is admitted to medicine.
--- NOTE | 2017-02-02 09:26 | Emergency Department Note ---
Disposition Clinical Impression: Abdominal pain Qualifiers: Abdominal location: unspecified location Qualified Code(s): R10.9 - Unspecified abdominal pain Disposition: Admitted As Inpatient Condition: Good Referrals: Nathaniel Russell MD [Primary Care Provider] - Time of Disposition: 17:07 General Adult HPI - General Chief complaint: ED Abdominal Pain Stated complaint: RLQ pain/fever Time Seen by Provider: 02/02/17 08:59 Source: patient Limitations: no limitations Nursing Notes Reviewed: Yes Vital Signs Reviewed: Yes - History of Present Illness HPI Narrative: Right lower quadrant abdominal pain is started at 11:30 last night. He states it is sharp and achy in nature. It does not radiate. He does have associated fevers and nausea associated with this. There are no provoking or alleviating factors. Pain Scale: 7 - Related Data Home Medications Medication Instructions Recorded Confirmed Albuterol Neb [Proventil Neb] 2.5 mg IH Q4HR PRN 07/20/16 11/04/16 Albuterol Sulfate [Proair Hfa] 2 puff IH Q4H PRN 07/20/16 11/04/16 Allopurinol [Zyloprim] 300 mg PO DAILY 07/20/16 11/04/16 Beclomethasone Diprop 80mcg [QVAR 1 puff IH BID 07/20/16 11/04/16 80 mcg] Calcitriol 0.5 mcg PO DAILY 07/20/16 11/04/16 Cyclobenzaprine [Flexeril] 10 mg PO HS 07/20/16 11/04/16 Divalproex (24 HR) [Depakote ER 250 mg PO HS 07/20/16 11/04/16 (24 HR)] Meloxicam [Mobic] 15 mg PO DAILY 07/20/16 11/04/16 [place]-3/Dha/Epa/Fish Oil [Fish Oil 1,000 mg PO BID 07/20/16 11/04/16 1,000 mg Softgel] Promethazine [Phenergan] 25 mg PO QID PRN 07/20/16 11/04/16 Ranitidine HCl [Acid Automotive Alignment Specialist] 150 mg PO BID 07/20/16 11/04/16 SUMAtriptan Succinate [Imitrex] 100 mg PO DAILY PRN 07/20/16 11/04/16 Temazepam [Restoril] 30 mg PO HS 07/20/16 11/04/16 hydrOXYzine HCl [Hydroxyzine HCl] 25 mg PO TID 07/20/16 11/04/16 Baclofen [Lioresal] 10 mg PO TID 11/04/16 11/04/16 Cetirizine HCl [All Day Allergy] 10 mg PO DAILY 11/04/16 11/04/16 EPINEPHrine [Epipen] 0.3 mg IJ ONCE PRN 11/04/16 11/04/16 Pantoprazole Sodium [Protonix] 40 mg PO HS 11/04/16 11/04/16 Paroxetine [Paxil] 20 mg PO DAILY 11/04/16 11/04/16 Pregabalin [Lyrica] 150 mg PO BID 11/04/16 11/04/16 Propranolol LA (24 HR) [Inderal LA] 60 mg PO DAILY 11/04/16 11/04/16 Allergies Allergy/AdvReac Type Severity Reaction Status Date / Time prochlorperazine Allergy Rash Verified 11/04/16 12:43 [From Compazine] onabotulinumtoxinA AdvReac Confusion Verified 11/04/16 12:43 [From Botox] All systems ED: reviewed and negative except as stated. Constitutional: Reports: fever (High temp of 101.). Denies: chills Cardiovascular: Denies: chest pain, dyspnea on exertion, syncope Respiratory: Denies: cough, dyspnea, wheezes Gastrointestinal: Reports: abdominal pain (Right lower quadrant), nausea. Denies: vomiting, diarrhea Genitourinary: Denies: urgency, dysuria, frequency, hematuria, discharge Musculoskeletal: Reports: back pain (Chronic low back). Denies: neck pain Integumentary: Denies: rash, abrasion Neurological: Denies: headache, weakness, numbness Psychiatric: Denies: anxiety Past Medical History - Past Medical History Medical history: Reports: arthritis, asthma, fibromyalgia, hyperlipidemia, hypertension, migraine Psychiatric history: Reports: anxiety, depression - Social History Smoking Status: Never smoker Smokeless Tobacco Status: No Alcohol use: Reports: none Drug use: Reports: none Physical Exam - General Limitations: no limitations General appearance: alert, in distress (Appears to be in pain.) - Head Head exam: atraumatic, normocephalic, normal inspection - Eye Eye exam: Present: normal appearance, PERRL, EOMI. Absent: scleral icterus - ENT ENT exam: normal exam, normal oropharynx, mucous membranes moist - Neck Neck exam: Present: normal inspection, full ROM, trachea midline. Absent: tenderness, meningismus - Chest Chest inspection: Present: normal inspection, symmetric chest wall rise. Absent : tenderness - Respiratory Respiratory exam: Present: normal lung sounds bilaterally. Absent: respiratory distress - Cardiovascular Cardiovascular exam: Present: regular rate, normal rhythm, normal heart sounds - Abdominal Exam Abdominal exam: Present: soft, tenderness (To right lower quadrant. Also complains of pain that radiates to his right lower quadrant whenever he palpate his right upper quadrant.), normal bowel sounds. Absent: distention, guarding, rebound, rigidity, organomegaly - Extremities Exam Extremities exam: Present: normal inspection, full ROM, normal capillary refill. Absent: tenderness, pedal edema - Back Exam Back exam: Present: normal inspection, full ROM, CVA tenderness (R). Absent: tenderness, CVA tenderness (L) - Neurological Exam Neurological exam: Present: alert, oriented X3 - Psychiatric Psychiatric exam: Present: normal affect, normal mood - Skin Skin exam: Present: warm, intact, normal color, diaphoresis. Absent: rash, cyanosis Course Course Narrative: No patient complaining of right lower quadrant pain. He states this began last night around 11:30. He states that he has had a fever since then up to 101. He is not tried anything to make his pain nausea or fever better. He is nauseated. He denies any shortness of breath or chest pain. He does report lower quadrant pain. On exam his lung sounds are clear heart tones are normal. He does have pain on palpation of his right lower quadrant. He also has pain on palpation of his right upper quadrant. He states that this radiates down into his right lower quadrant. He has right-sided CVA tenderness. He does have a history of uric acid crystals in his urine. States he has never had a stone. Patient states he has had no episodes of vomiting. Patient is diaphoretic on exam. He is holding his right lower quadrant. He does have a trash can at bedside states that he is worried about vomiting. We will get a CT of his abdomen. We will Provide with pain and nausea relief. - Reevaluation(s) Reevaluation #1: Patient states that his pain has decreased somewhat however he still in a decent amount pain. He appears to be in pain. He is still diaphoretic. He is still holding his abdomen. CT of abdomen did not show appendicitis. His white count is normal. UA is still pending. We will continue to monitor patient. Time: 11:34 Reevaluation #2: Patient reassessed. He is still in significant pain. He is still diaphoretic. Complaining of right lower quadrant pain. We have discussed admission with the patient. He is agreeable to this. We will admit patient for serial abdominal exams. I discussed this with Dr Lee. He is agreeable with the plan. Time: 13:19 Vital Signs Temperature 100 F H 02/02/17 08:52 Pulse Rate 104 02/02/17 08:52 Respiratory Rate 16 02/02/17 08:52 Blood Pressure 131/81 02/02/17 08:52 O2 Sat by Pulse Oximetry 98 02/02/17 08:52 Temperature 98.3 F 02/02/17 15:42 Pulse Rate 78 02/02/17 15:42 Respiratory Rate 15 02/02/17 15:42 Blood Pressure 117/74 02/02/17 15:42 O2 Sat by Pulse Oximetry 97 02/02/17 15:42 Oxygen Delivery Oxygen Delivery Room Air Medical Decision Making - Medical Records Medical records reviewed: Yes I reviewed the patient's medical records. - Lab Data Lab results reviewed: Yes I reviewed the patient's lab results. Result diagrams: 02/02/17 09:58 02/02/17 09:58 Lab Results 02/02/17 02/02/17 02/02/17 Range/Units 09:58 09:58 11:25 WBC 10.3 (4.3-11.1) K/mcL RBC 5.43 (4.19-5.50) M/mcL Hgb 16.3 (12.9-16.9) g/dL Hct 46.7 (37.5-50.1) % MCV 86.0 (83.0-100.0) fL MCH 30.0 (28.0-33.3) pg MCHC 34.9 (31.6-35.5) g/dL RDW 13.2 (11.5-14.5) % Plt Count 188 (140-400) K/mcL MPV 10.0 (9.4-12.4) fL Immature Gran % 0.3 (0-4) % Seg Neutrophils % 70.6 % Lymphocytes % 14.1 % Monocytes % 13.2 % Eosinophils % 1.5 % Basophils % 0.3 % Neutrophils # 7.3 (1.6-8.9) K/mcL Lymphocytes # 1.5 (0.6-4.6) K/mcL Monocytes # 1.4 H (0.0-1.3) K/mcL Eosinophils # 0.2 (0.0-0.6) K/mcL Basophils # 0.0 (0.0-0.2) K/mcL Sodium 138 (136-145) mEq/L Potassium 3.8 (3.5-4.5) mEq/L Chloride 104 (98-109) mEq/L Carbon Dioxide 24 (19-29) mEq/L BUN 15 (8-26) mg/dL Creatinine 1.25 (0.72-1.25) mg/dL Est GFR ( Amer) > 60 (> 60) Est GFR (Non-Af Amer) > 60 (> 60) BUN/Creatinine Ratio 12 (6-26) Glucose 97 (70-99) mg/dL Calculated Osmolality 287 (280-300) Calcium 9.7 (8.6-10.8) mg/dL Total Bilirubin 1.0 (0.2-1.2) mg/dL Direct Bilirubin 0.3 (0.0-0.5) mg/dL Indirect Bilirubin 0.7 (0.0-1.2) mg/dL AST 24 (5-34) Units/L ALT 51 (0-55) Units/L Alkaline Phosphatase 87 (38-126) Units/L Serum Total Protein 7.6 (6.0-8.3) g/dL Albumin 4.1 (3.5-5.0) g/dL Globulin 3.5 (2.4-3.5) g/dL Albumin/Globulin Ratio 1.2 (1.1-2.2) Lipase 24 (8-78) Units/L Urine Color Yellow (Yellow) Urine Clarity Clear (Clear) Urine pH 6.5 (5.0-8.0) pH Units Ur Specific [place] 1.018 (1.010-1.025) Urine Protein Negative (Neg-Trace) mg/dL Urine Glucose (UA) Normal (Normal) mg/dL Urine Ketones Negative (Negative) mg/dL Urine Blood Negative (Negative) Urine Nitrite Negative (Negative) Urine Bilirubin Negative (Negative) Urine Urobilinogen Normal (Normal) mg/dL Ur Leukocyte Esterase Negative (Negative) Ur Culture Indicated? NO (NO) - Radiology Data Radiology results reviewed: Yes I reviewed the patient's radiology results. Abdomen/Pelvis CT 02/02/17 09:20 IMPRESSION: 1. No evidence of bowel obstruction, intraperitoneal free air, or abscess. 2. Findings consistent with presence of changes of fatty infiltration of the liver as described. D/ / 02/02/2017 10:50:13 Demetrio Palm MD / [facility] Interpreting Provider: Demetrio Palm MD - EKG Data EKG #1 EKG results narrative: Normal sinus rhythm at a rate of 94. MI interval is 175. QRS duration is 106. QT is 352. QTC is 404. No signs of acute ischemia. No significant change from previous EKG dated 07/23/2016.
[2017-02-02 10:05] LABS: Basophils % 0.3 %; Eosinophils # 0.2 K/mcL (0.0-0.6); Eosinophils % 1.5 %; Hematocrit 46.7 % (37.5-50.1); Hemoglobin 16.3 g/dL (12.9-16.9); Immature Granulocytes % 0.3 % (0-4); Lymphocytes # 1.5 K/mcL (0.6-4.6); Lymphocytes % 14.1 %; Mean Corpuscular HGB Conc 34.9 g/dL (31.6-35.5); Monocytes # 1.4 K/mcL (0.0-1.3); Monocytes % 13.2 %; Neutrophils # 7.3 K/mcL (1.6-8.9); Platelet Count 188 K/mcL (140-400); Red Blood Count 5.43 M/mcL (4.19-5.50); Red Cell Distribution Width 13.2 % (11.5-14.5); Segmented Neutrophils % 70.6 %
[2017-02-02 10:18] LABS: Alanine Aminotransferase 51 Units/L (0-55); Albumin 4.1 g/dL (3.5-5.0); Albumin/Globulin Ratio 1.2 (1.1-2.2); Alkaline Phosphatase 87 Units/L (38-126); Aspartate Amino Transferase 24 Units/L (5-34); BUN/Creatinine Ratio 12 (6-26); Bilirubin,Direct 0.3 mg/dL (0.0-0.5); Bilirubin,Indirect 0.7 mg/dL (0.0-1.2); Blood Urea Nitrogen 15 mg/dL (8-26); Calcium 9.7 mg/dL (8.6-10.8); Carbon Dioxide 24 mEq/L (19-29); Chloride 104 mEq/L (98-109); Globulin 3.5 g/dL (2.4-3.5); Glucose 97 mg/dL (70-99); Lipase 24 Units/L (8-78); Osmolality,Calculated 287 (280-300); Potassium 3.8 mEq/L (3.5-4.5); Sodium 138 mEq/L (136-145); Total Protein 7.6 g/dL (6.0-8.3); eGFR For African Americans > 60 (> 60); eGFR For Non-African Americans > 60 (> 60)
[2017-02-02] MEDS ORDERED: Ketorolac 15 MG/ML VIAL IVP ONE (11:33)
[2017-02-02 11:38] LABS: Bilirubin,Urine Negative (Negative); Blood,Urine Negative (Negative); Clarity,Urine Clear (Clear); Color,Urine Yellow (Yellow); Glucose,Urine (UA) Normal (Normal); Ketones,Urine Negative (Negative); Leukocyte Esterase,Urine Negative (Negative); Nitrite,Urine Negative (Negative); PH,Urine 6.5 pH Units (5.0-8.0); Protein,Urine Negative (Neg-Trace); Specific Gravity,Urine 1.018 (1.010-1.025); Urobilinogen,Urine Normal (Normal)
[2017-02-02] MEDS ORDERED: Naloxone 0.4 MG/ML INJ IVP PRN (14:54)
[2017-02-02] MEDS ORDERED: Acetaminophen 325 MG TABLET PO PRN ×2 (14:54→23:07)
[2017-02-02] MEDS ORDERED: SUMAtriptan succinate 50 MG TABLET PO PRN (14:57)
--- NOTE | 2017-02-02 15:06 | Internal Med History&Physical ---
<Elisha Harding M - Last Filed: 02/02/17 18:13> Date of Encounter: 02/02/17 Time of Encounter: 15:03 Assessment and Plan (1) Kidney stone on right side Current visit: Yes Status: Acute CT of the abdomen showed a non-obstructing punctate calculus in pole of right kidney. Likely source of patient's pain. No hydronephrosis. UA negative for infection. Pain control and nausea control. IV fluids. (2) Abdominal pain Current visit: Yes Status: Acute Patient reporting sudden onset of right sided abdominal pain and nausea last evening at 11:30, accompanied by fever, chills and sweats. CT Abd/Pelvis shows no evidence of bowel obstruction, intraperitoneal free air or abscess. Non-obstructing punctate calculus in lower pole of right kidney. stone may be source of pain. [place] and dilaudid PRN for pain colace BID Narcan PRN for respiratory depression. NPO except for meds and ice chips. Advance diet as tolerated. Qualifiers: Abdominal location: unspecified location Qualified Code(s): R10.9 - Unspecified abdominal pain (3) Fever Current visit: Yes Status: Acute Patient reporting fever, chills and sweats with temperature of 101 at home. Temperature of 100F on presentation. Patient also complaining of right sided abdominal pain. No cough, SOB. Reports some increased right sided abdominal pain with urination. CT shows small non-obstructing stone in pole of right kidney. UA negative for infection blood cultures ordered check VS Q4hr. Qualifiers: Fever type: unspecified Qualified Code(s): R50.9 - Fever, unspecified (4) Hypertension Current visit: Yes Status: Acute Continue home dose of propranalol. Qualifiers: Hypertension type: essential hypertension Qualified Code(s): I10 - Essential (primary) hypertension (5) Nausea Current visit: Yes Status: Acute Patient reporting nausea with abdominal pain since last evening. Patient reports he has gastroparesis and he takes PO phenergan at home. Zofran IVP PRN. NPO except meds and ice chips advance as tolerated. (6) DVT prophylaxis Current visit: Yes Status: Acute anti-embolic stockings lovenox 40mg SQ daily Internal Medicine - H&P: HPI Chief complaint: abdominal pain Admitted From: Emergency Dept Plans for Post Hospital Care: Home History of present illness: Mr. Kerr is a 42 year old male with asthma, hypertension, hyperlipidemia, migraine headaches, gout, fibromyalgia presented to the emergency department today with complaints of right-sided abdominal pain. Patient reports that approximately 11:30 last night he developed sudden onset of sharp pain in his right side of his abdomen, he reports he reports it radiates from his right upper quadrant down his right lower quadrant. He also reports some nausea, but has not vomited. He reports occasional dizziness. Denies chest pain, palpitations, or shortness of breath. He reports he has been having regular bowel movements. He reports he has had some pain in his right side while trying to urinate. He also reports fevers, sweats and chills since last night as well. Evaluation in the emergency department reveals normal right blood cell count of 10.3. Abdominal and pelvis CT showed no evidence of bowel obstruction, intraperitoneal free air or abscess. EKG showed normal sinus rhythm and ischemia no changes from previous. Urinalysis was not concerning for infection. Patient was mildly tachycardic with heart rate in the 90s to low 100s, and his temperature was 100.0 Fahrenheit. Blood cultures were drawn, and retroperitoneal ultrasound was ordered. On exam, patient alert and oriented , in no acute distress. He is mildly diaphoretic. Heart has regular rate and rhythm, lungs are clear bilaterally to auscultation. Abdomen is tender to left upper quadrant, right upper quadrant, right lower quadrant. He has positive bowel sounds. Past Med Surg Social Fam HX - Past Medical History Medical history: arthritis, asthma, fibromyalgia, hyperlipidemia, hypertension, migraine Psychiatric history: anxiety, depression - Past Surgical History Surgical History: other (bladder stimulator) - Social History Smoking Status: Never smoker Smokeless Tobacco Status: No Alcohol use: none Drug use: none - Family History Mother Living Status: Still Living Hx Family Medical Disorders: Yes (fibromyalia, arthritis, seizures) Father Living Status: Still Living Hx Family Respiratory Disorders: Yes (copd) Hx Family Endocrine Disorder: Yes (DM) Internal Medicine - H&P: Meds Albuterol Neb [Proventil Neb] 2.5 mg IH Q4HR PRN 07/20/16 [History] Albuterol Sulfate [Proair Hfa] 2 puff IH Q4H PRN 07/20/16 [History] Allopurinol [Zyloprim] 300 mg PO DAILY 07/20/16 [History] Beclomethasone Diprop 80mcg [QVAR 80 mcg] 1 puff IH BID 07/20/16 [History] Calcitriol 0.5 mcg PO DAILY 07/20/16 [History] Cyclobenzaprine [Flexeril] 10 mg PO HS 07/20/16 [History] Divalproex (24 HR) [Depakote ER (24 HR)] 250 mg PO HS 07/20/16 [History] Meloxicam [Mobic] 15 mg PO DAILY 07/20/16 [History] Fields-3/Dha/Epa/Fish Oil [Fish Oil 1,000 mg Softgel] 1,000 mg PO BID 07/20/16 [ History] Promethazine [Phenergan] 25 mg PO QID PRN 07/20/16 [History] Ranitidine HCl [Acid Butter Maker] 150 mg PO BID 07/20/16 [History] SUMAtriptan Succinate [Imitrex] 100 mg PO DAILY PRN 07/20/16 [History] Temazepam [Restoril] 30 mg PO HS 07/20/16 [History] hydrOXYzine HCl [Hydroxyzine HCl] 25 mg PO TID 07/20/16 [History] Baclofen [Lioresal] 10 mg PO TID 11/04/16 [History] Cetirizine HCl [All Day Allergy] 10 mg PO DAILY 11/04/16 [History] EPINEPHrine [Epipen] 0.3 mg IJ ONCE PRN 11/04/16 [History] Pantoprazole Sodium [Protonix] 40 mg PO HS 11/04/16 [History] Paroxetine [Paxil] 20 mg PO DAILY 11/04/16 [History] Pregabalin [Lyrica] 150 mg PO BID 11/04/16 [History] Propranolol LA (24 HR) [Inderal LA] 60 mg PO DAILY 11/04/16 [History] Allergies prochlorperazine [From Compazine] Allergy (Verified 11/04/16 12:43) Rash onabotulinumtoxinA [From Botox] Adverse Reaction (Verified 11/04/16 12:43) Confusion All Systems PM: A 10-system review of systems was performed and is negative for pertinent findings except as documented above in the HPI. - Constitutional Constitutional: chills, fever(s), night sweats - EENT Eyes: no change in vision, no discharge, no pain, no photophobia Ears: no ear discharge, no ear pain, no tinnitus Nose, mouth and throat: no dysphagia, no nasal discharge, no neck pain, no sore throat - Cardiovascular Cardiovascular ROS IM: no chest pain, no diaphoresis, no dyspnea, no lightheadedness, no palpitations, no syncope - Respiratory Respiratory: no cough, no dyspnea, no wheezing, no excessive phlegm production - Gastrointestinal Gastrointestinal: abdominal pain, nausea, no diarrhea, no hematemesis, no hematochezia, no melena, no vomiting - Genitourinary Genitourinary ROS male: dysuria, flank pain - Musculoskeletal Musculoskeletal ROS IM: no numbness, no tingling - Integumentary Integumentary IM: no rash, no unusual bruising - Neurological Neurological ROS: no confusion, no convulsions, no focal weakness, no numbness, no tingling, no tremor(s) - Hematologic/Lymphatic Hematologic/Lymphatic: no easy bruising - Constitutional Vitals: Temp Pulse Resp BP Pulse Ox 100 F H 98 18 118/82 98 02/02/17 08:52 02/02/17 11:23 02/02/17 14:43 02/02/17 14:43 02/02/17 11:23 General appearance: Present: A&O X 3, pleasant, no acute distress - Head Head exam: Present: atraumatic, normocephalic - Eye Eye exam: Present: PERRL, conjuntiva pink, sclera anicteric Pupils: Present: PERRL - Neck Neck exam general surgery: Present: supple, trachea midline. Absent: lymphadenopathy - Respiratory Respiratory exam: Present: CTAB. Absent: accessory muscle use, rales, rhonchi, wheezes - Cardiovascular Cardiovascular exam: Present: RRR, +S1, +S2. Absent: diastolic murmur, gallop, rubs, systolic murmur - GI/Abdominal GI/Abdominal exam: Present: normal bowel sounds, soft, tenderness, no peritoneal signs. Absent: distended - Extremities Exam Extremities exam: Present: warm, radial pulses palpable and symetrical. Absent : calf tenderness, cyanotic, pedal edema - Neurological Exam Neurological exam: Present: CN II-XII intact, oriented X3, no focal deficits. Absent: pronater drift, facial droop, speech deficit - Skin Skin exam: Present: dry, intact Internal Med - H&P Results - Labs CBC & Chem 7: 02/02/17 09:58 02/02/17 09:58 Labs: All Lab Results (24 Hours) 02/02/17 02/02/17 02/02/17 Range/Units 09:58 09:58 11:25 WBC 10.3 (4.3-11.1) K/mcL RBC 5.43 (4.19-5.50) M/mcL Hgb 16.3 (12.9-16.9) g/dL Hct 46.7 (37.5-50.1) % MCV 86.0 (83.0-100.0) fL MCH 30.0 (28.0-33.3) pg MCHC 34.9 (31.6-35.5) g/dL RDW 13.2 (11.5-14.5) % Plt Count 188 (140-400) K/mcL MPV 10.0 (9.4-12.4) fL Immature Gran % 0.3 (0-4) % Seg Neutrophils % 70.6 % Lymphocytes % 14.1 % Monocytes % 13.2 % Eosinophils % 1.5 % Basophils % 0.3 % Neutrophils # 7.3 (1.6-8.9) K/mcL Lymphocytes # 1.5 (0.6-4.6) K/mcL Monocytes # 1.4 H (0.0-1.3) K/mcL Eosinophils # 0.2 (0.0-0.6) K/mcL Basophils # 0.0 (0.0-0.2) K/mcL Sodium 138 (136-145) mEq/L Potassium 3.8 (3.5-4.5) mEq/L Chloride 104 (98-109) mEq/L Carbon Dioxide 24 (19-29) mEq/L BUN 15 (8-26) mg/dL Creatinine 1.25 (0.72-1.25) mg/dL Est GFR ( Amer) > 60 (> 60) Est GFR (Non-Af Amer) > 60 (> 60) BUN/Creatinine Ratio 12 (6-26) Glucose 97 (70-99) mg/dL Calculated Osmolality 287 (280-300) Calcium 9.7 (8.6-10.8) mg/dL Total Bilirubin 1.0 (0.2-1.2) mg/dL Direct Bilirubin 0.3 (0.0-0.5) mg/dL Indirect Bilirubin 0.7 (0.0-1.2) mg/dL AST 24 (5-34) Units/L ALT 51 (0-55) Units/L Alkaline Phosphatase 87 (38-126) Units/L Serum Total Protein 7.6 (6.0-8.3) g/dL Albumin 4.1 (3.5-5.0) g/dL Globulin 3.5 (2.4-3.5) g/dL Albumin/Globulin Ratio 1.2 (1.1-2.2) Lipase 24 (8-78) Units/L Urine Color Yellow (Yellow) Urine Clarity Clear (Clear) Urine pH 6.5 (5.0-8.0) pH Units Ur Specific Reagan 1.018 (1.010-1.025) Urine Protein Negative (Neg-Trace) mg/dL Urine Glucose (UA) Normal (Normal) mg/dL Urine Ketones Negative (Negative) mg/dL Urine Blood Negative (Negative) Urine Nitrite Negative (Negative) Urine Bilirubin Negative (Negative) Urine Urobilinogen Normal (Normal) mg/dL Ur Leukocyte Esterase Negative (Negative) Ur Culture Indicated? NO (NO) - Diagnostic Studies CT scan - abdomen Additional comments: Abdomen/Pelvis CT 02/02/17 09:20 IMPRESSION: 1. No evidence of bowel obstruction, intraperitoneal free air, or abscess. 2. Findings consistent with presence of changes of fatty infiltration of the liver as described. D/ / 02/02/2017 10:50:13 Demetrio Palm MD / [email or web address] Interpreting Provider: Demetrio Palm MD <Valdez Lee - Last Filed: 02/02/17 18:39> Date of Encounter: 02/02/17 Internal Medicine - H&P: HPI History of present illness: Mr. Kerr is a 42 year old male All Systems PM: A 10-system review of systems was performed and is negative for pertinent findings except as documented above in the HPI. - Constitutional Vitals: Temp Pulse Resp BP Pulse Ox 98.3 F 78 15 117/74 97 02/02/17 15:42 02/02/17 15:42 02/02/17 15:42 02/02/17 15:42 02/02/17 15:42 Internal Med - H&P Results - Labs CBC & Chem 7: 02/02/17 09:58 02/02/17 09:58 - Attending Attestation I have personally performed a face to face evaluation on this patient and I discussed the assessment and plan with the nurse practitioner. I have reviewed and agree with the documented care plan. History and Exam by me shows: Mr. Kerr is a 42 year old male with asthma, hypertension, hyperlipidemia, migraine headaches, gout, fibromyalgia presented to the emergency department today with complaints of right-sided abdominal pain. Patient reports that approximately 11:30 last night he developed sudden onset of sharp pain in his right side of his abdomen, he reports he reports it radiates from his right upper quadrant down his right lower quadrant. He also reports some nausea, but has not vomited. He reports occasional dizziness. Denies chest pain, palpitations, or shortness of breath. Gen: Mild distress due to RLQ / Rt flank pain Back : Mild Rt CVA tenderness Abd: No muprhy's , McBurny's tenderness a/p 1. Acute non obstruction punctate renal stone Rt kidney lower pole 2. Fever His UA - WNL, however with his renal stone and Rt CVA tenderness will treat him with empirical prophylactic abx Rocephin 1gm IV daily Cont IV analgesics PRN
[2017-02-02] MEDS: 0.9 % Sodium Chloride 1,000 ML IVC SCH (17:49)
[2017-02-02] MEDS: hydrOXYzine pamoate 25 MG CAPSULE PO SCH ×2 (17:57→21:26)
[2017-02-02] MEDS: Baclofen 10 MG TABLET PO SCH ×2 (17:57→21:27)
[2017-02-02] MEDS: *HR* HYDROmorphone (PF) 1 MG/ML SYRINGE IVP PRN ×2 (18:11→22:24)
[2017-02-02] MEDS: Beclomethasone 80mcg MDI IH SCH (20:03)
[2017-02-02] MEDS ORDERED: Temazepam 15 MG CAPSULE PO SCH (21:00)
[2017-02-02] MEDS: Divalproex (24 HR) 250 MG TABLET PO SCH (21:26)
[2017-02-02] MEDS: Pregabalin 75 MG CAPSULE PO SCH (21:28)
[2017-02-02] MEDS: Famotidine 20 MG TABLET PO SCH (21:28)
[2017-02-02] MEDS: Ondansetron 4 MG/2 ML VIAL IVP PRN (22:23)
[2017-02-03] MEDS: 0.9 % Sodium Chloride 1,000 ML IVC SCH ×3 (03:59→23:20)
[2017-02-03] MEDS: *HR* HYDROmorphone (PF) 1 MG/ML SYRINGE IVP PRN ×5 (04:01→20:43)
[2017-02-03 04:28] LABS: Basophils % 0.2 %; Eosinophils # 0.1 K/mcL (0.0-0.6); Eosinophils % 0.5 %; Hematocrit 45.7 % (37.5-50.1); Hemoglobin 15.3 g/dL (12.9-16.9); Immature Granulocytes % 0.3 % (0-4); Lymphocytes # 1.5 K/mcL (0.6-4.6); Lymphocytes % 13.9 %; Mean Corpuscular HGB Conc 33.5 g/dL (31.6-35.5); Mean Corpuscular Hemoglobin 29.4 pg (28.0-33.3); Mean Corpuscular Volume 87.7 fL (83.0-100.0); Mean Platelet Volume 10.2 fL (9.4-12.4); Monocytes # 1.3 K/mcL (0.0-1.3); Monocytes % 12.6 %; Neutrophils # 7.7 K/mcL (1.6-8.9); Platelet Count 163 K/mcL (140-400); Red Blood Count 5.21 M/mcL (4.19-5.50); Red Cell Distribution Width 13.3 % (11.5-14.5); Segmented Neutrophils % 72.5 %
[2017-02-03 04:49] LABS: BUN/Creatinine Ratio 12 (6-26); Blood Urea Nitrogen 16 mg/dL (8-26); Calcium 9.1 mg/dL (8.6-10.8); Carbon Dioxide 25 mEq/L (19-29); Chloride 107 mEq/L (98-109); Glucose 109 mg/dL (70-99); Osmolality,Calculated 292 (280-300); Potassium 4.2 mEq/L (3.5-4.5); Sodium 140 mEq/L (136-145); eGFR For African Americans > 60 (> 60); eGFR For Non-African Americans 59 (> 60)
[2017-02-03] MEDS: *HR* Enoxaparin 40 MG/0.4 ML SYRINGE SQ SCH (05:44)
[2017-02-03] MEDS: hydrOXYzine pamoate 25 MG CAPSULE PO SCH ×3 (07:27→20:42)
[2017-02-03] MEDS: Baclofen 10 MG TABLET PO SCH ×3 (07:27→20:42)
[2017-02-03] MEDS: Propranolol LA (24 HR) 60 MG CAP.SA.24H PO SCH (07:27)
[2017-02-03] MEDS: Famotidine 20 MG TABLET PO SCH ×2 (07:28→20:42)
[2017-02-03] MEDS: Pregabalin 75 MG CAPSULE PO SCH ×2 (07:28→20:42)
[2017-02-03] MEDS: Beclomethasone 80mcg MDI IH SCH ×2 (08:07→20:52)
--- NOTE | 2017-02-03 16:31 | Electrocardiograph Report ---
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
--- NOTE | 2017-02-03 17:12 | Internal Med Progress Note ---
Date of Encounter: 02/03/17 Time of Encounter: 11:00 - Assessment and plan (1) Abdominal pain Current Visit: Yes Status: Acute Assessment and plan: Sudden onset right-sided abdominal pain and nausea - associated with fever or chills and sweats CT abdomen and pelvis - no evidence of bowel obstruction, intraperitoneal free air or abscess, there is a nonobstructing punctate calculus in the lower part of right kidney Continue IV Zofran, IV Pepcid, IV Dilaudid as needed for pain, NPO Qualifiers: Abdominal location: unspecified location Qualified Code(s): R10.9 - Unspecified abdominal pain (2) Kidney stone on right side Current Visit: Yes Status: Acute Assessment and plan: CT of the abdomen revealed a non-obstructing punctate calculus in pole of right kidney - possibly source of patient's pain. No hydronephrosis UA negative Continue empiric IV Rocephin, IV Zofran when necessary, [place] when necessary Urology consult pending (3) Hypertension Current Visit: Yes Status: Chronic Assessment and plan: Essential hypertension, controlled, monitor Qualifiers: Hypertension type: essential hypertension Qualified Code(s): I10 - Essential (primary) hypertension (4) DVT prophylaxis Current Visit: Yes Status: Acute Assessment and plan: Continue Lovenox - Time Spent With Patient less than 15 minutes - Subjective Interval history: Examined this morning. Patient is awake and alert. Not in any distress. Complains of right flank pain and right sided abdominal pain. Patient states pain is 7 out of 10. He says it is sharp and intermittent. Alleviated with pain medications. He also complains of subjective fever and nausea. Denies chest pain or shortness of breath. No other acute events or complaints. - Constitutional Vitals: Temp Pulse Resp BP Pulse Ox 98.5 F 88 17 121/76 95 02/03/17 14:53 02/03/17 14:53 02/03/17 14:53 02/03/17 14:53 02/03/17 14:53 General appearance: Present: A&O X 3, pleasant, no acute distress, answers questions appropriately - Head Head exam: Present: atraumatic - Eye Eye exam: Present: EOMI - Respiratory Respiratory exam: Present: CTAB. Absent: rhonchi, stridor, tachypnea - Cardiovascular Cardiovascular exam: Present: RRR, +S1, +S2 - GI/Abdominal GI/Abdominal exam: Present: soft, tenderness (Right lower quadrant and right flank tenderness), no peritoneal signs. Absent: distended, firm, guarding, rigid - Extremities Exam Extremities exam: Present: radial pulses palpable and symetrical. Absent: cyanotic, pedal edema, tenderness - Neurological Exam Neurological exam: Present: alert, oriented X3, no focal deficits. Absent: facial droop, speech deficit Internal Medicine: Result - Labs CBC & Chem 7: 02/03/17 04:05 02/03/17 04:05 Labs: Short CBC 02/03/17 Range/Units 04:05 WBC 10.7 (4.3-11.1) K/mcL Hgb 15.3 (12.9-16.9) g/dL Hct 45.7 (37.5-50.1) % Plt Count 163 (140-400) K/mcL Neutrophils # 7.7 (1.6-8.9) K/mcL BMP 02/03/17 04:05 Sodium 140 Potassium 4.2 Chloride 107 Carbon Dioxide 25 BUN 16 Creatinine 1.33 H Glucose 109 H Calcium 9.1 Consult Discharge Plan - Plan Referrals: Nathaniel Russell MD [Primary Care Provider] -
[2017-02-03] MEDS: Divalproex (24 HR) 250 MG TABLET PO SCH (20:42)
[2017-02-03] MEDS: *HR* HYDROcodone/Acet 5/325 mg TABLET PO PRN (23:21)
[2017-02-04] MEDS: *HR* HYDROmorphone (PF) 1 MG/ML SYRINGE IVP PRN ×5 (02:22→21:07)
[2017-02-04] MEDS: *HR* HYDROcodone/Acet 5/325 mg TABLET PO PRN (04:51)
[2017-02-04] MEDS: Ondansetron 4 MG/2 ML VIAL IVP PRN (04:52)
[2017-02-04 05:11] LABS: Basophils % 0.3 %; Eosinophils # 0.1 K/mcL (0.0-0.6); Eosinophils % 1.4 %; Hematocrit 42.8 % (37.5-50.1); Hemoglobin 14.3 g/dL (12.9-16.9); Immature Granulocytes % 0.1 % (0-4); Lymphocytes # 1.6 K/mcL (0.6-4.6); Lymphocytes % 21.5 %; Mean Corpuscular HGB Conc 33.4 g/dL (31.6-35.5); Mean Corpuscular Hemoglobin 29.5 pg (28.0-33.3); Mean Corpuscular Volume 88.2 fL (83.0-100.0); Mean Platelet Volume 10.5 fL (9.4-12.4); Monocytes # 1.1 K/mcL (0.0-1.3); Neutrophils # 4.5 K/mcL (1.6-8.9); Platelet Count 149 K/mcL (140-400); Red Blood Count 4.85 M/mcL (4.19-5.50); Red Cell Distribution Width 13.3 % (11.5-14.5); Segmented Neutrophils % 61.7 %
[2017-02-04] MEDS: *HR* Enoxaparin 40 MG/0.4 ML SYRINGE SQ SCH (05:22)
[2017-02-04 05:25] LABS: BUN/Creatinine Ratio 11 (6-26); Blood Urea Nitrogen 12 mg/dL (8-26); Calcium 9.1 mg/dL (8.6-10.8); Carbon Dioxide 24 mEq/L (19-29); Chloride 106 mEq/L (98-109); Glucose 77 mg/dL (70-99); Osmolality,Calculated 291 (280-300); Sodium 141 mEq/L (136-145); eGFR For African Americans > 60 (> 60); eGFR For Non-African Americans > 60 (> 60)
[2017-02-04] MEDS: hydrOXYzine pamoate 25 MG CAPSULE PO SCH ×3 (07:52→21:07)
[2017-02-04] MEDS: Pregabalin 75 MG CAPSULE PO SCH ×2 (07:53→21:07)
[2017-02-04] MEDS: Propranolol LA (24 HR) 60 MG CAP.SA.24H PO SCH (07:53)
[2017-02-04] MEDS: Baclofen 10 MG TABLET PO SCH ×3 (07:53→21:07)
[2017-02-04] MEDS: Famotidine 20 MG TABLET PO SCH ×2 (07:53→21:07)
[2017-02-04] MEDS: Beclomethasone 80mcg MDI IH SCH ×2 (11:04→20:05)
[2017-02-04] MEDS: 0.9 % Sodium Chloride 1,000 ML IVC SCH ×2 (11:39→23:36)
--- NOTE | 2017-02-04 15:48 | Internal Med Progress Note ---
Date of Encounter: 02/04/17 Time of Encounter: 10:15 - Assessment and plan (1) Abdominal pain Current Visit: Yes Status: Acute Assessment and plan: Sudden onset right-sided abdominal pain and nausea - associated with fever or chills and sweats - improving slowly CT abdomen and pelvis - no evidence of bowel obstruction, intraperitoneal free air or abscess, there is a nonobstructing punctate calculus in the lower part of right kidney Continue IV Zofran, IV Pepcid, IV fluids, IV Dilaudid as needed for pain, clear liquid diet Anticipate discharge home in a.m. Qualifiers: Abdominal location: unspecified location Qualified Code(s): R10.9 - Unspecified abdominal pain (2) Kidney stone on right side Current Visit: Yes Status: Acute Assessment and plan: CT of the abdomen revealed a non-obstructing punctate calculus in pole of right kidney - possibly source of patient's pain. No hydronephrosis UA negative Continue empiric IV Rocephin, IV Zofran when necessary, [place] when necessary Urology consult pending (3) Hypertension Current Visit: Yes Status: Chronic Assessment and plan: Essential hypertension, controlled, monitor Qualifiers: Hypertension type: essential hypertension Qualified Code(s): I10 - Essential (primary) hypertension (4) Depression with anxiety Current Visit: Yes Status: Chronic Assessment and plan: Stable, continue home meds (5) DVT prophylaxis Current Visit: Yes Status: Acute Assessment and plan: Continue Lovenox - Time Spent With Patient 25 - 35 minutes - Subjective Interval history: Examined this morning. Patient is awake and alert. Not in any distress. Complains of right flank pain and right sided abdominal pain. Patient states pain is 6 out of 10. States it is sharp and intermittent. Alleviated with pain medications. No fever. Nausea is improved and he states he is hungry. Denies chest pain or shortness of breath. No other acute events or complaints. - Constitutional Vitals: Temp Pulse Resp BP Pulse Ox 97.3 F L 90 18 116/76 94 02/04/17 15:12 02/04/17 15:12 02/04/17 15:12 02/04/17 15:12 02/04/17 15:33 General appearance: Present: A&O X 3, pleasant, no acute distress, answers questions appropriately - Head Head exam: Present: atraumatic - Eye Eye exam: Present: EOMI - Neck Neck exam general surgery: Present: supple - Respiratory Respiratory exam: Present: CTAB. Absent: rales, rhonchi, stridor, wheezes, tachypnea - Cardiovascular Cardiovascular exam: Present: RRR, +S1, +S2 - GI/Abdominal GI/Abdominal exam: Present: soft, tenderness (right flank and right CVA tenderness), no peritoneal signs. Absent: distended, firm, guarding, rigid - Extremities Exam Extremities exam: Present: radial pulses palpable and symetrical. Absent: cyanotic, pedal edema, tenderness - Neurological Exam Neurological exam: Present: alert, oriented X3, no focal deficits Internal Medicine: Result - Labs CBC & Chem 7: 02/04/17 04:10 02/04/17 04:10 Labs: Short CBC 02/04/17 Range/Units 04:10 WBC 7.2 (4.3-11.1) K/mcL Hgb 14.3 (12.9-16.9) g/dL Hct 42.8 (37.5-50.1) % Plt Count 149 (140-400) K/mcL Neutrophils # 4.5 (1.6-8.9) K/mcL BMP 02/04/17 04:10 Sodium 141 Potassium 4.0 Chloride 106 Carbon Dioxide 24 BUN 12 Creatinine 1.13 Glucose 77 Calcium 9.1 - Impressions Impressions Retroperitoneum Ultrasound 02/03/17 21:30 IMPRESSION: Unremarkable ultrasound of the kidneys and urinary bladder. D/ / Darrel Martin MD / Darrel Martin MD Interpreting Provider: Darrel Martin MD Consult Discharge Plan - Plan Referrals: Nathaniel Russell MD [Primary Care Provider] -
[2017-02-04] MEDS: MetroNIDAZOLE 500 MG/100 ML 500 MG/100 ML BAG IVPB SCH ×2 (16:09→23:32)
--- NOTE | 2017-02-04 16:48 | Urology - Consult Note ---
Date of Encounter: 02/04/17 Time of Encounter: 16:46 - Assessment and Plan (1) Kidney stone on right side Current Visit: Yes Status: Acute Assessment and plan: 42-year-old male with a history of nephrolithiasis. He has a 2 mm stone in the right lower pole calyx. There is no evidence of hydronephrosis. His urine culture is negative. It is unlikely that the stone is the source of his abdominal pain. We could consider treatment of it, but I typically defer until a stone is at least 3-4 mm before treating a nonobstructing stone electively. Recommend further workup for his abdominal pain and consider gastroloenterology consultation. He can follow up with Dr. Shipman as an outpatient and discuss the stone further. At this time, he does not require any urologic intervention. Urology CN:HPI Consult date: 02/04/17 Reason for consult Urology: Other (Nephrolithiasis) Requesting physician: Ruy Champion History of present illness: 42-year-old man who is well-known to the urology service presents with abdominal pain. He had a CT scan which showed a 2 mm right lower pole stone. His bowel pattern has been going on for 3-4 days now. It is fairly sharp and located in the right upper quadrant and radiates to the right lower quadrant. He is also had some fevers. The pain is sharp. Palpation since exacerbated the pain. He denies any history of kidney stones until this most recent diagnosis. However , he does have lower urinary tract issues. He had urinary retention and previous had an InterStim placed. This was eventually removed in order for and to obtain an MRI. He typically follows with Dr. Shipman. Past Med Surg Social Fam HX - Past Medical History Medical history: arthritis, asthma, fibromyalgia, hyperlipidemia, hypertension, migraine Psychiatric history: anxiety, depression - Past Surgical History Surgical History: other (bladder stimulator) - Social History Smoking Status: Never smoker Smokeless Tobacco Status: No Alcohol use: none Drug use: none - Family History Mother Living Status: Still Living Hx Family Medical Disorders: Yes (fibromyalia, arthritis, seizures) Father Living Status: Still Living Hx Family Respiratory Disorders: Yes (copd) Hx Family Endocrine Disorder: Yes (DM) Medications and Allergies Albuterol Neb [Proventil Neb] 2.5 mg IH Q4HR PRN 07/20/16 [History] Albuterol Sulfate [Proair Hfa] 2 puff IH Q4H PRN 07/20/16 [History] Allopurinol [Zyloprim] 300 mg PO DAILY 07/20/16 [History] Beclomethasone Diprop 80mcg [QVAR 80 mcg] 1 puff IH BID 07/20/16 [History] Calcitriol 0.5 mcg PO DAILY 07/20/16 [History] Cyclobenzaprine [Flexeril] 10 mg PO HS 07/20/16 [History] Divalproex (24 HR) [Depakote ER (24 HR)] 250 mg PO HS 07/20/16 [History] Meloxicam [Mobic] 15 mg PO DAILY 07/20/16 [History] [place]-3/Dha/Epa/Fish Oil [Fish Oil 1,000 mg Softgel] 1,000 mg PO BID 07/20/16 [ History] Promethazine [Phenergan] 25 mg PO QID PRN 07/20/16 [History] Ranitidine HCl [Acid Plant Accountant] 150 mg PO BID 07/20/16 [History] SUMAtriptan Succinate [Imitrex] 100 mg PO DAILY PRN 07/20/16 [History] Temazepam [Restoril] 30 mg PO HS 07/20/16 [History] hydrOXYzine HCl [Hydroxyzine HCl] 25 mg PO TID 07/20/16 [History] Baclofen [Lioresal] 10 mg PO TID 11/04/16 [History] Cetirizine HCl [All Day Allergy] 10 mg PO DAILY 11/04/16 [History] EPINEPHrine [Epipen] 0.3 mg IJ ONCE PRN 11/04/16 [History] Pantoprazole Sodium [Protonix] 40 mg PO HS 11/04/16 [History] Paroxetine [Paxil] 20 mg PO DAILY 11/04/16 [History] Pregabalin [Lyrica] 150 mg PO BID 11/04/16 [History] Propranolol LA (24 HR) [Inderal LA] 60 mg PO DAILY 11/04/16 [History] Allergies prochlorperazine [From Compazine] Allergy (Verified 11/04/16 12:43) Rash onabotulinumtoxinA [From Botox] Adverse Reaction (Verified 11/04/16 12:43) Confusion Review of Systems - Constitutional fever(s), no chills - EENT Nose, mouth and throat: no dizziness - Cardiovascular no chest pain - Respiratory no dyspnea - Gastrointestinal abdominal pain, nausea, vomiting - Genitourinary no flank pain, no hematuria - Musculoskeletal no back pain - Integumentary no erythema, no rash - Neurological no weakness - Psychiatric no suicidal ideation - Hematologic/Lymphatic no easy bleeding - Allergic/Immunologic no wheezing Exam Initial Vital Signs Temp Pulse Resp BP Pulse Ox 100 F H 104 16 131/81 98 02/02/17 08:52 02/02/17 08:52 02/02/17 08:52 02/02/17 08:52 02/02/17 08:52 - General physical appearance Present: well developed, well nourished, no distress - Eyes Absent: icteric - ENT Present: normal nares - Neck Present: trachea midline - Respiratory Present: normal respiratory effort - Cardiovascular Cardiovascular exam IM: RRR - Abdomen Abdomen: Present: soft, tender (RUQ tenderness) Urology Results - Labs 02/04/17 04:10 02/04/17 04:10 Diabetes panel 02/04/17 Range/Units 04:10 Sodium 141 (136-145) mEq/L Potassium 4.0 (3.5-4.5) mEq/L Chloride 106 (98-109) mEq/L Carbon Dioxide 24 (19-29) mEq/L BUN 12 (8-26) mg/dL Creatinine 1.13 (0.72-1.25) mg/dL Glucose 77 (70-99) mg/dL Calcium 9.1 (8.6-10.8) mg/dL Calcium panel 02/04/17 Range/Units 04:10 Calcium 9.1 (8.6-10.8) mg/dL Pituitary panel 02/04/17 Range/Units 04:10 Sodium 141 (136-145) mEq/L Potassium 4.0 (3.5-4.5) mEq/L Chloride 106 (98-109) mEq/L Carbon Dioxide 24 (19-29) mEq/L BUN 12 (8-26) mg/dL Creatinine 1.13 (0.72-1.25) mg/dL Glucose 77 (70-99) mg/dL Calcium 9.1 (8.6-10.8) mg/dL Adrenal panel 02/04/17 Range/Units 04:10 Sodium 141 (136-145) mEq/L Potassium 4.0 (3.5-4.5) mEq/L Chloride 106 (98-109) mEq/L Carbon Dioxide 24 (19-29) mEq/L BUN 12 (8-26) mg/dL Creatinine 1.13 (0.72-1.25) mg/dL Glucose 77 (70-99) mg/dL Calcium 9.1 (8.6-10.8) mg/dL All other labs normal. - Imaging CT scan - abdomen: report reviewed, image reviewed CT scan - pelvis: report reviewed, image reviewed Consult Discharge Plan - Plan Referrals: Nathaniel Russell MD [Primary Care Provider] -
[2017-02-04] MEDS: Divalproex (24 HR) 250 MG TABLET PO SCH (21:06)
[2017-02-04] MEDS: Temazepam 15 MG CAPSULE PO PRN (21:20)
[2017-02-05] MEDS: *HR* Enoxaparin 40 MG/0.4 ML SYRINGE SQ SCH (05:45)
[2017-02-05] MEDS: *HR* HYDROmorphone (PF) 1 MG/ML SYRINGE IVP PRN ×5 (05:45→23:08)
[2017-02-05] MEDS: Beclomethasone 80mcg MDI IH SCH ×2 (07:57→20:00)
[2017-02-05] MEDS: MetroNIDAZOLE 500 MG/100 ML 500 MG/100 ML BAG IVPB SCH ×3 (08:03→23:03)
[2017-02-05] MEDS: hydrOXYzine pamoate 25 MG CAPSULE PO SCH ×3 (08:04→20:51)
[2017-02-05] MEDS: Propranolol LA (24 HR) 60 MG CAP.SA.24H PO SCH (08:04)
[2017-02-05] MEDS: Baclofen 10 MG TABLET PO SCH ×3 (08:04→20:51)
[2017-02-05] MEDS: Pregabalin 75 MG CAPSULE PO SCH ×2 (08:04→20:51)
[2017-02-05] MEDS: Famotidine 20 MG TABLET PO SCH ×2 (08:05→20:51)
[2017-02-05] MEDS: 0.9 % Sodium Chloride 1,000 ML IVC SCH ×2 (09:44→19:50)
[2017-02-05] MEDS ORDERED: 0.9 % Sodium Chloride 1,000 ML IVC SCH (11:54)
[2017-02-05] MEDS: Ondansetron 4 MG/2 ML VIAL IVP PRN (13:38)
--- NOTE | 2017-02-05 15:07 | Internal Med Progress Note ---
Date of Encounter: 02/05/17 Time of Encounter: 08:55 - Assessment and plan (1) Abdominal pain Current Visit: Yes Status: Acute Assessment and plan: Sudden onset right-sided abdominal pain and nausea - possibly due to acute colitis, associated with fever or chills and sweats - improving slowly CT abdomen and pelvis - no evidence of bowel obstruction, intraperitoneal free air or abscess, there is a nonobstructing punctate calculus in the lower part of right kidney Continue IV Zofran, IV Pepcid, IV fluids, IV Dilaudid as needed for pain, diet Anticipate discharge home in a.m. Qualifiers: Abdominal location: unspecified location Qualified Code(s): R10.9 - Unspecified abdominal pain (2) Kidney stone on right side Current Visit: Yes Status: Acute Assessment and plan: CT of the abdomen revealed a non-obstructing punctate calculus in pole of right kidney - possibly source of patient's pain. 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 Patient is awake and alert. Not in any distress. Complains of persistent right flank pain and right sided abdominal pain. Patient states pain is about 4 out of 10. States it is sharp and intermittent. Alleviated with pain medications. No fever. Tolerating soft diet. Denies chest pain or shortness of breath. No other acute events or complaints. - Constitutional Vitals: Temp Pulse Resp BP Pulse Ox 98.0 F 68 18 125/80 97 02/05/17 11:14 02/05/17 11:14 02/05/17 11:14 02/05/17 11:14 02/05/17 11:14 General appearance: Present: A&O X 3, pleasant, no acute distress, answers questions appropriately - Head Head exam: Present: atraumatic - Eye Eye exam: Present: EOMI - ENT ENT exam: Present: mucous membranes dry - Neck Neck exam general surgery: Present: supple - Respiratory Respiratory exam: Present: CTAB. Absent: rales, rhonchi, stridor, wheezes, tachypnea - Cardiovascular Cardiovascular exam: Present: RRR, +S1, +S2 - GI/Abdominal GI/Abdominal exam: Present: soft, tenderness (Mild right flank and right CVA tenderness), no peritoneal signs. Absent: distended, firm, guarding, rigid - Extremities Exam Extremities exam: Present: radial pulses palpable and symetrical. Absent: cyanotic, pedal edema, tenderness - Neurological Exam Neurological exam: Present: alert, oriented X3, no focal deficits Internal Medicine: Result - Labs CBC & Chem 7: 02/04/17 04:10 02/04/17 04:10 Consult Discharge Plan - Plan Referrals: Nathaniel Russell MD [Primary Care Provider] - 02/12/17 1:00 pm
[2017-02-05] MEDS: Divalproex (24 HR) 250 MG TABLET PO SCH (20:51)
[2017-02-05] MEDS: Temazepam 15 MG CAPSULE PO PRN (20:52)
[2017-02-05] MEDS ORDERED: DIAZEPAM 5 MG/ML PO ONE (22:11)
[2017-02-05] MEDS ORDERED: diazePAM 5 MG TABLET PO ONE (22:39)
[2017-02-06] MEDS: *HR* Enoxaparin 40 MG/0.4 ML SYRINGE SQ SCH (06:10)
[2017-02-06] MEDS: *HR* HYDROmorphone (PF) 1 MG/ML SYRINGE IVP PRN ×2 (06:48→11:51)
[2017-02-06] MEDS: Beclomethasone 80mcg MDI IH SCH (08:24)
[2017-02-06] MEDS: Pregabalin 75 MG CAPSULE PO SCH (09:54)
[2017-02-06] MEDS: Propranolol LA (24 HR) 60 MG CAP.SA.24H PO SCH (09:54)
[2017-02-06] MEDS: Baclofen 10 MG TABLET PO SCH (09:54)
[2017-02-06] MEDS: hydrOXYzine pamoate 25 MG CAPSULE PO SCH (09:54)
[2017-02-06] MEDS: Famotidine 20 MG TABLET PO SCH (09:54)
[2017-02-06] MEDS: MetroNIDAZOLE 500 MG/100 ML 500 MG/100 ML BAG IVPB SCH (09:55)
[2017-02-06 10:57] VITALS: BP 133/79
--- NOTE | 2017-02-06 11:30 | Discharge Summary ---
Date of Encounter: 02/06/17 Time of Encounter: 08:15 - Discharge Diagnosis (1) Abdominal pain Priority: Primary Status: Acute Comments: Abdominal pain with nausea possibly due to acute colitis now improved Continue by mouth antibiotics Qualifiers: Abdominal location: unspecified location Qualified Code(s): R10.9 - Unspecified abdominal pain (2) Kidney stone on right side Priority: Primary Status: Acute Comments: Nonobstructing punctate calculus in the pole of right kidney with no evidence of hydronephrosis Follow up with urology as outpatient (3) Hypertension Priority: Secondary Status: Chronic Comments: Controlled, continue home meds, monitor Qualifiers: Hypertension type: essential hypertension Qualified Code(s): I10 - Essential (primary) hypertension (4) Depression with anxiety Priority: Secondary Status: Chronic Comments: Continue home meds (5) Chronic pain Priority: Secondary Status: Chronic Comments: Chronic neck and back pain with osteoarthritis of both knees Continue home meds Qualifiers: Chronic pain type: other chronic pain Qualified Code(s): G89.29 - Other chronic pain (6) Fibromyalgia Priority: Secondary Status: Chronic Comments: Chronic - continue home meds Follow-up with rheumatology as outpatient - Discharge Medications Prescriptions: Ciprofloxacin HCl [Cipro] 500 mg PO BID 7 Days Docusate [Colace] 100 mg PO BID PRN #10 PRN Reason: Constipation HYDROcodone/Acet 5/325 mg [[place] 5-325 mg] 1 tab PO Q6H PRN #10 tab PRN Reason: Moderate Pain (4-6) metroNIDAZOLE [Metronidazole] 500 mg PO TID 7 Days Pantoprazole Sodium [Protonix] 40 mg PO HS #30 Home Medications: Albuterol Neb [Proventil Neb] 2.5 mg IH Q4HR PRN 07/20/16 [History] Albuterol Sulfate [Proair Hfa] 2 puff IH Q4H PRN 07/20/16 [History] Allopurinol [Zyloprim] 300 mg PO DAILY 07/20/16 [History] Beclomethasone Diprop 80mcg [QVAR 80 mcg] 1 puff IH BID 07/20/16 [History] Calcitriol 0.5 mcg PO DAILY 07/20/16 [History] Cyclobenzaprine [Flexeril] 10 mg PO HS 07/20/16 [History] Divalproex (24 HR) [Depakote ER (24 HR)] 250 mg PO HS 07/20/16 [History] Meloxicam [Mobic] 15 mg PO DAILY 07/20/16 [History] [place]-3/Dha/Epa/Fish Oil [Fish Oil 1,000 mg Softgel] 1,000 mg PO BID 07/20/16 [ History] Promethazine [Phenergan] 25 mg PO QID PRN 07/20/16 [History] Ranitidine HCl [Acid Forming Machine Operator] 150 mg PO BID 07/20/16 [History] SUMAtriptan Succinate [Imitrex] 100 mg PO DAILY PRN 07/20/16 [History] Temazepam [Restoril] 30 mg PO HS 07/20/16 [History] hydrOXYzine HCl [Hydroxyzine HCl] 25 mg PO TID 07/20/16 [History] Baclofen [Lioresal] 10 mg PO TID 11/04/16 [History] Cetirizine HCl [All Day Allergy] 10 mg PO DAILY 11/04/16 [History] EPINEPHrine [Epipen] 0.3 mg IJ ONCE PRN 11/04/16 [History] Paroxetine [Paxil] 20 mg PO DAILY 11/04/16 [History] Pregabalin [Lyrica] 150 mg PO BID 11/04/16 [History] Propranolol LA (24 HR) [Inderal LA] 60 mg PO DAILY 11/04/16 [History] Ciprofloxacin HCl [Cipro] 500 mg PO BID 7 Days 02/06/17 [Rx] Docusate [Colace] 100 mg PO BID PRN #10 02/06/17 [Rx] HYDROcodone/Acet 5/325 mg [[place] 5-325 mg] 1 tab PO Q6H PRN #10 tab 02/06/17 [Rx ] Pantoprazole Sodium [Protonix] 40 mg PO HS #30 02/06/17 [Rx] metroNIDAZOLE [Metronidazole] 500 mg PO TID 7 Days 02/06/17 [Rx] Allergies/Adverse Reactions: Allergies prochlorperazine [From Compazine] Allergy (Verified 11/04/16 12:43) Rash onabotulinumtoxinA [From Botox] Adverse Reaction (Verified 11/04/16 12:43) Confusion Date of admission: 02/04/17 15:51 Primary care physician: Nathaniel Russell MD Anticipated date of discharge: 02/06/17 - Patient Status Disposition: Home, Self-Care Condition: Good Functional capacity at discharge: uses cane/walker Overall status at discharge: patient is progressing back to baseline - Discharge Instructions Instructions: Ciprofloxacin (By mouth), Hydrocodone/Acetaminophen (By mouth), Metronidazole (By mouth) Follow Up With: Nathaniel Russell MD [Primary Care Provider] - 02/12/17 1:00 pm - Diet and Activity Activity: resume usual activities as tolerated Diet: advance to your usual diet Hospital course: Mr. Kerr is a 42 year old male with past medical history of arthritis, fibromyalgia, chronic pain, hyperlipidemia, hypertension and migraines. He presented to the ED with complaints of right-sided abdominal pain. Patient states his abdominal pains develop suddenly was sharp and right-sided and radiates from her right upper quadrant down to his right lower quadrant. It was also radiating to his back. He also complained of nausea but no vomiting. He also had some mild dizziness. He denied chest pain or palpitations or shortness of breath. He also had some pain when he was trying to urinate. He also complained of subjective fever and chills. Initial CT of abdomen and pelvis revealed no evidence of bowel obstruction). No free air or abscess. She did have fatty infiltration of the liver and a punctate nonobstructing calculus within the third of the right kidney. He was admitted initially for right renal calculus which was thought to be causing his abdominal pain. Urology was contacted and they have evaluated the patient. The patient stated that the stone is not the source of her normal pain. Patient does have a 2 mm stone in the right (calyx. There is no evidence for hydronephrosis. His urine culture is negative. Advised outpatient follow-up with urology. She was started on empiric IV Rocephin and IV Flagyl. He was also continued on IV fluids and IV pain medication as needed. He was being treated for possible colitis. Patient was continued on all his home medications. His abdominal pain slowly started improving. Patient was initially started on a clear liquid diet and then advanced to a soft diet. Patient tolerated diet well. And he is ambulating well. Patient did not have any other episodes of vomiting or diarrhea or abdominal pain. Patient stated that his pain is better and wanted to go home. No other acute events or complications during his stay in the hospital. Patient does mention that he has fibromyalgia and other chronic pain and states he is scheduled to see his paint spraying machine operator helper for his neck pain and also scheduled to see a shelter supervisor soon. He states he will follow up with his primary care physician soon. Patient has been excellent about his condition and plan of care in detail. He understood and agreed. No unanswered questions. He is being discharged in a stable condition. - Time Spent with Patient Total time spent providing and/or coordinating discharge services: Less than 30 minutes - Constitutional Vitals: Temp Pulse Resp BP Pulse Ox 98.5 F 86 15 133/79 95 02/06/17 10:56 02/06/17 10:56 02/06/17 10:56 02/06/17 10:56 02/06/17 10:56 General appearance: Present: A&O X 3, pleasant, no acute distress, answers questions appropriately - Head Head exam: Present: atraumatic - Eye Eye exam: Present: EOMI - ENT ENT exam: Present: mucous membranes moist - Neck Neck exam general surgery: Present: supple - Respiratory Respiratory exam: Present: CTAB. Absent: rales, rhonchi, stridor, wheezes, tachypnea - Cardiovascular Cardiovascular exam: Present: RRR, +S1, +S2 - GI/Abdominal GI/Abdominal exam: Present: soft, tenderness (Mild tenderness over right flank now improved), no peritoneal signs. Absent: distended, firm, guarding, rigid - Extremities Exam Extremities exam: Present: radial pulses palpable and symetrical. Absent: cyanotic, pedal edema, tenderness - Neurological Exam Neurological exam: Present: alert, oriented X3, no focal deficits
== END 2017-02-06 15:18 | disposition home or self-care (01) | DRG 392 ==
LOC: EMEROO 08:45 → 3ANU 08:45
PROVIDERS: ADMIT Internal Medicine; ATTEND Internal Medicine